=== PATIENT | male | born 1965 | race Caucasian/White ===

== ENCOUNTER 2020-10-23 14:15 | Emergency (ER) | payer OTHER, SELFPAY ==
--- NOTE | ~2020-10-23 | CT_ITS ---
EXAMINATION: CT ABDOMEN AND PELVIS WITHOUT CONTRAST CLINICAL INFORMATION: Left flank pain COMPARISON: None TECHNIQUE: Multidetector volumetric imaging was performed from the superior aspect of the liver through the pubic symphysis. Sagittal and coronal reformatted images were obtained on the technologist's workstation. This CT examination was performed using dose optimization techniques as appropriate, variously including the following: *Automated exposure control *Adjustment of mA and/or kV according to patient size (this includes techniques or standardized protocols for targeted exams where dose is matched to indication/reason for exam; i.e. extremities or head) *Use of iterative reconstruction technique DLP: 962 mGy-cm FINDINGS: LUNG BASES: There is bronchiectasis seen at the lung bases. There is a 1 cm right middle lobe pulmonary nodule. There is a small 3 mm question calcified right lower lobe pulmonary nodule. LIVER, GALLBLADDER, AND BILIARY TREE: The liver is slightly enlarged and low in attenuation suggestive of fatty infiltration. No focal hepatic lesion or biliary ductal dilatation is present. The gallbladder is upper normal in size. No gallstones are seen. PANCREAS: Unremarkable. SPLEEN: The spleen is slightly enlarged measuring 14 cm. ADRENAL GLANDS: Unremarkable. KIDNEYS AND URETERS: There is a 1 cm stone in the left renal pelvis. There is a 2 mm stone in the lower pole of the left kidney. There may be a small cyst exophytic to the lower pole of the left kidney. No right renal stone is seen. No hydronephrosis or ureteral dilatation. BLADDER: Not optimally distended. GASTROINTESTINAL TRACT: There is an umbilical hernia containing small bowel. There is stool throughout the colon suggestive of constipation. Small and large bowel is otherwise unremarkable. ABDOMINAL WALL: Umbilical hernia containing small bowel. No evidence of obstruction. LYMPH NODES: Normal. VASCULAR: Unremarkable. PELVIC VISCERA: Unremarkable. OSSEOUS STRUCTURES: Unremarkable. CT/CT abdomen pelvis wo con IMPRESSION: 1 cm central left renal pelvis stone. Small 2 mm lower pole left renal stone. No hydronephrosis. Small umbilical hernia containing small bowel. No evidence of obstruction. Hepatosplenomegaly and fatty infiltration of the liver.
[2020-10-23 14:31] VITALS: BP 197/97; BP 200/100; PULSE 77; PULSE 88; RESP 20; TEMP 36.8; O2SAT 96; O2SAT 97; BMI 47.9
--- NOTE | 2020-10-23 14:49 | ED_ITS ---
HPI - General Adult General Chief complaint: General Medical Stated complaint: flank pain Time Seen by Provider: 10/23/20 14:37 Source: patient and EMS Mode of arrival: EMS Limitations: no limitations History of Present Illness MD complaint: L flank pain Onset (ago): week(s) (3) Location: abdomen (L flank) Severity: moderate Quality: aching and dull Pain Consistency: constant Relieving factors: none Exacerbating factors: none Associated symptoms: denies other symptoms Treatments prior to arrival: none Related Data Home Medications Medication Instructions Recorded Confirmed methadone 10 mg/mL oral concentrate 2.5 mg PO Q6H 02/24/20 06/23/20 Previous Rx's Medication Instructions Recorded ethyl alcohol 62 % topical gel 1 applic TOPICAL TID #59 ml 12/29/19 (Hand [employer]ent Acquisition Director) latex gloves (Latex Gloves, Large) #24 ea 12/29/19 albuterol sulfate 90 mcg/actuation 2 puff INHALATION Q4-6H PRN 30 02/24/20 aerosol inhaler Days #18 g montelukast 10 mg tablet 10 mg PO DAILY 90 Days #90 tab 02/24/20 sennosides 8.6 mg tablet 17.2 mg PO BEDTIME PRN 90 Days 02/24/20 #180 tab umeclidinium 62.5 mcg/actuation 1 inh PO DAILY 30 Days #30 ea 02/24/20 blister powder for inhalation loratadine 10 mg tablet 10 mg PO BID #180 tab 06/02/20 albuterol sulfate 90 mcg/actuation 2 inh INHALATION Q6H PRN 30 Days 06/07/20 breath activated powder inhaler #1 ea (ProAir RespiClick) ibuprofen 800 mg tablet 800 mg PO BID PRN 10 Days #20 tab 10/20/20 Allergies Allergy/AdvReac Type Severity Reaction Status Date / Time codeine [CODEINE] Allergy Intermediate RASH Verified 06/23/20 09:56 Review of Systems Review of Systems: Constitutional : No Weight loss, No Fever, No Chills ENT/Mouth : No sore throat, No Rhinorrhea Eyes: No Swelling, No Redness Cardiovascular : No Chest Pain, No SOB, NoEdema Respiratory : No Cough, No Sputum, No Wheezing Gastrointestinal : no Nausea, no Vomiting, no Diarrhea, positive abdominal Pain, No Hematochezia, No Melena Genitourinary : No Dysuria, No Urinary Frequency, No Hematuria, No Urgency Musculoskeletal : No joint pain, No Myalgias, No Joint Swelling Skin : No Skin Lesions, No rash Neuro : No Weakness, No Numbness, No Dizziness, No Headache Psych : No Anxiety/Panic, No Depression Heme/Lymph: No Bruising, No Lymphadenopathy Endocrine : No Polyuria, No Polydipsia All other systems reviewed and are negative. [facility] Past Medical History Attestation statement: The following information was validated with the patient. Medical History Back pain Constipation due to opioid therapy COPD (chronic obstructive pulmonary disease) Methadone use Toenail deformity UTI symptoms Surgical History History of appendectomy History of extraction of renal calculus Family History Family History Father Cerebral hemorrhage Mother Breast cancer Social History Social History Alcohol intake: never Cigarettes Per Day: 2 Advance Directives: No Physical Exam Vital Signs: Vital Signs: Last Vital Signs Temp 98.2 F 10/23/20 14:31 Pulse 77 10/23/20 14:31 Resp 20 10/23/20 14:31 BP 197/97 H 10/23/20 14:31 Pulse Ox 97 10/23/20 14:31 Oxygen Flow Rate 4 10/23/20 14:31 Body Mass Index 47.9 Appearance: Alert. Oriented X3. No acute distress. Eyes: Pupils equal, round and reactive to light. ENT: Pharynx normal. Neck: Normal inspection. Neck supple. CVS: Normal heart rate and rhythm. Pulses normal. Respiratory: No respiratory distress. Breath sounds mild anterior exp wheezes Abdomen: Soft and mild LLQ pain no rebound guarding Skin: Skin warm and dry. Normal skin color. Normal skin turgor. Extremities: No lower extremity edema. No calf ttp Neuro: Oriented X 3. No motor deficit. No sensory deficit. Course Course Course Narrative: signed out to Dr. Puente pending urine and CT scan Medical Decision Making MDM Narrative Medical decision making narrative: 55 yo male with hx of COPD scant wheezes he is looking for a new rescue inhaler will order. At this time has atraumatic 3 weeks LLQ pain and L flank pain hx of remote renal colic. At this time labs, UA, CT scan for renal colic, diverticulitis ordered, dispo per results and findings. Lab Data Result diagrams: 10/23/20 14:56 10/23/20 14:56 Labs: Lab Results 10/23/20 10/23/20 10/23/20 Range/Units 14:44 14:56 14:56 WBC 9.3 (4.8-10.8) X10*3/uL RBC 3.68 L (4.60-5.80) X10*6/uL Hgb 11.2 L (14.0-18.0) g/dl Hct 34.6 L (42-52) % MCV 94.0 (80-98) fL MCH 30.4 (27.0-33.0) pg MCHC 32.4 (31.0-36.0) g/dl RDW 13.4 (11.0-16.0) % Plt Count 195 (160-400) X10*3/uL MPV 9.4 (9.4-12.4) fL Immature Gran % (Auto) 0.5 H (0.0-0.4) % Neut % (Auto) 72.9 (45-73) % Lymph % (Auto) 16.8 L (20-40) % [place] % (Auto) 6.8 (2-11) % Eos % (Auto) 2.7 (0-4) % Baso % (Auto) 0.3 (0-2) % Lymph # (Auto) 1.6 (1.2-4.9) X10*3/uL [place] # (Auto) 0.6 (0.1-1.2) X10*3/uL Eos # (Auto) 0.3 (0.0-0.4) X10*3/uL Baso # (Auto) 0.0 (0.0-0.2) X10*3/uL Abs Immat Gran (auto) 0.05 H (0.00-0.03) X10*3/uL Absolute Neuts (auto) 6.8 (2.0-8.3) X10*3/uL Absolute Nucleated RBC 0.000 (0.0-0.012) X10*3/uL Nucleated RBC % (auto) 0.0 (0.0-0.2) /100WBC Sodium 141 (135-145) mmol/L Potassium 4.3 (3.3-5.1) mmol/L Chloride 92 L (96-108) mmol/L Carbon Dioxide 39 H (22-29) mmol/L Anion Gap 14 (12-20) BUN 12 (9-16) mg/dL Creatinine 0.76 (0.5-1.4) mg/dL Estim Creat Clear Calc 154.3 Estimated GFR > 60 Random Glucose 93 (60-115) mg/dL Calcium 9.6 (8.4-10.2) mg/dL Magnesium 2.1 (1.6-2.6) mg/dL Total Bilirubin 0.4 (0.0-1.0) mg/dL Direct Bilirubin 0.2 (0.0-0.5) mg/dL AST 31 (5-37) U/L ALT 58 H (0-40) U/L Alkaline Phosphatase 56 (39-117) U/L Total Protein 7.0 (6.5-8.0) g/dL Albumin 4.4 (3.5-5.0) g/dL Urine Color YELLOW Urine Appearance CLEAR Urine pH 6.5 (5.0-8.0) Ur Specific [place] 1.015 (1.005-1.025) Urine Protein NEG (NEG-TRACE) MG/DL Urine Glucose (UA) NEG (NEG) MG/DL Urine Ketones NEG (NEG) MG/DL Urine Blood 2+ H (NEG) Urine Nitrite NEG (NEG) Ur Leukocyte Esterase TRACE H (NEG) Urine RBC 15-29 H (0) /HPF Urine WBC 1-4 (0-4) /HPF Ur Squamous Epith Cells 1+ /LPF Urine Bacteria NONE /LPF Discharge Plan Discharge Clinical Impression: Left flank pain Prescriptions: No Action (DME) latex gloves [Latex Gloves, Large] Misc See Rx Instructions .ROUTE .MEDSUPPLY Qty: 24 RF: 0 Hand Talent Acquisition Director 62 % gel 1 applic topical TID Qty: 59 RF: 1 loratadine 10 mg tablet 10 mg PO BID Qty: 180 RF: 1 ProAir RespiClick 90 mcg/actuation aerosol powdr breath activated 2 inh inhalation Q6H PRN (Reason: shortness of breath or wheezing) 30 Days Qty: 1 RF: 6 ibuprofen 800 mg tablet 800 mg PO BID PRN (Reason: pain) 10 Days Qty: 20 RF: 0 methadone 10 mg/mL concentrate 2.5 mg PO Q6H RF: 0 albuterol sulfate 90 mcg/actuation HFA aerosol inhaler 2 puff inhalation Q4-6H PRN (Reason: bronchospasm) 30 Days Qty: 18 RF: 11 montelukast 10 mg tablet 10 mg PO DAILY 90 Days Qty: 90 RF: 3 umeclidinium 62.5 mcg/actuation blister with device 1 inh PO DAILY 30 Days Qty: 30 RF: 11 sennosides 8.6 mg tablet 17.2 mg PO BEDTIME PRN (Reason: constipation) 90 Days Qty: 180 RF: 3
[2020-10-23 14:50] LABS: Glucose Urine UA NEG (NEG); Leukocyte Esterase Urine TRACE (NEG); Nitrite Urine NEG (NEG); PH 6.5 (5.0-8.0); Specific Gravity - Urine 1.015 (1.005-1.025); Urine Blood 2+ (NEG); Urine Ketones NEG (NEG); Urine Protein NEG (NEG-TRACE)
[2020-10-23 14:51] LABS: Appearance Urine CLEAR; Color Urine YELLOW
[2020-10-23 15:07] LABS: Squamous Epithelial Cell Urine 1+ /LPF
[2020-10-23 15:09] LABS: MANUAL DIFF FLAG NO
[2020-10-23 15:10] LABS: Basophils Percent Auto 0.3 % (0-2); Eosinophils Absolute Auto 0.3 X10*3/uL (0.0-0.4); Eosinophils Percent Auto 2.7 % (0-4); Hematocrit 34.6 % (42-52); Hemoglobin 11.2 g/dl (14.0-18.0); Imm Gran Abs Auto 0.05 X10*3/uL (0.00-0.03); Imm Gran Pct Auto 0.5 % (0.0-0.4); Lymphocytes Absolute Auto 1.6 X10*3/uL (1.2-4.9); Lymphocytes Percent Auto 16.8 % (20-40); Mean Corpuscular HGB Conc 32.4 g/dl (31.0-36.0); Mean Corpuscular Hemoglobin 30.4 pg (27.0-33.0); Mean Platelet Volume 9.4 fL (9.4-12.4); Monocytes Absolute Auto 0.6 X10*3/uL (0.1-1.2); Monocytes Percent Auto 6.8 % (2-11); Neutrophils Absolute Auto 6.8 X10*3/uL (2.0-8.3); Neutrophils Percent Auto 72.9 % (45-73); Platelet Count 195 X10*3/uL (160-400); Red Blood Count 3.68 X10*6/uL (4.60-5.80); Red Cell Distribution Width 13.4 % (11.0-16.0); White Blood Count 9.3 X10*3/uL (4.8-10.8)
[2020-10-23 15:29] LABS: Alanine Aminotransferase 58 U/L (0-40); Albumin Level 4.4 g/dL (3.5-5.0); Alkaline Phosphatase 56 U/L (39-117); Aspartate Amino Transferase 31 U/L (5-37); Bilirubin Direct 0.2 mg/dL (0.0-0.5); Bilirubin Total 0.4 mg/dL (0.0-1.0); Blood Urea Nitrogen 12 mg/dL (9-16); Calcium 9.6 mg/dL (8.4-10.2); Creatinine Clr Calc Pharmacy 154.3; Estimated Glomerular Filt Rate > 60; Glucose Random 93 mg/dL (60-115); Magnesium 2.1 mg/dL (1.6-2.6)
[2020-10-23 15:39] LABS: Anion Gap 14 (12-20)
[2020-10-23] MEDS: Morphine Sulfate Immed Release 15 MG TABLET PO (15:42)
[2020-10-23] MEDS: Albuterol Sulfate 90 MCG 8 GM INHALER 2 PUFF INHALE (15:42)
[2020-10-23 15:43] LABS: Carbon Dioxide 39 mmol/L (22-29); Chloride 92 mmol/L (96-108); Potassium 4.3 mmol/L (3.3-5.1); Sodium 141 mmol/L (135-145)
[2020-10-23] MEDS: HYDROmorphone HCl 2 MG/ML VIAL IM (17:30)
[2020-10-23] MEDS: oxyCODONE HCl Immed Release 5 MG TABLET 10 MG PO (18:13)
== END 2020-10-23 18:26 | disposition home or self-care (01) ==
PROVIDERS: Emergency Provider Emergency Medicine; PCP Internal Medicine
DX: R10.9 Unspecified abdominal pain (principal); J44.9 Chronic obstructive pulmonary disease, unspecified; F17.210 Nicotine dependence, cigarettes, uncomplicated; Z71.6 Tobacco abuse counseling; Z79.899 Other long term (current) drug therapy
CPT/HCPCS: 36415; 74176; 80048; 80076; 81001; 83735; 85025; 96372; 99284; J1170

== ENCOUNTER 2020-10-25 11:04 | Emergency (ER) | payer OTHER, SELFPAY ==
[2020-10-25 11:13] VITALS: BP 142/90; PULSE 82; O2SAT 97
[2020-10-25 11:59] VITALS: BP 193/84; PULSE 79; RESP 19; TEMP 36.6; O2SAT 99; BMI 48.0
[2020-10-25 12:28] LABS: MANUAL DIFF FLAG NO
[2020-10-25 12:30] LABS: Basophils Percent Auto 0.2 % (0-2); Eosinophils Absolute Auto 0.2 X10*3/uL (0.0-0.4); Eosinophils Percent Auto 2.6 % (0-4); Hematocrit 36.6 % (42-52); Hemoglobin 11.5 g/dl (14.0-18.0); Imm Gran Abs Auto 0.03 X10*3/uL (0.00-0.03); Imm Gran Pct Auto 0.3 % (0.0-0.4); Lymphocytes Absolute Auto 1.4 X10*3/uL (1.2-4.9); Lymphocytes Percent Auto 15.2 % (20-40); Mean Corpuscular HGB Conc 31.4 g/dl (31.0-36.0); Mean Corpuscular Hemoglobin 29.7 pg (27.0-33.0); Mean Corpuscular Volume 94.6 fL (80-98); Mean Platelet Volume 9.5 fL (9.4-12.4); Monocytes Absolute Auto 0.5 X10*3/uL (0.1-1.2); Monocytes Percent Auto 5.7 % (2-11); Platelet Count 201 X10*3/uL (160-400); Red Blood Count 3.87 X10*6/uL (4.60-5.80); Red Cell Distribution Width 13.6 % (11.0-16.0); White Blood Count 9.3 X10*3/uL (4.8-10.8)
[2020-10-25 12:52] LABS: Anion Gap 10 (12-20); Blood Urea Nitrogen 11 mg/dL (9-16); Calcium 9.7 mg/dL (8.4-10.2); Carbon Dioxide 42 mmol/L (22-29); Chloride 92 mmol/L (96-108); Creatinine Clr Calc Pharmacy 154.6; Estimated Glomerular Filt Rate > 60; Glucose Random 88 mg/dL (60-115); Potassium 4.3 mmol/L (3.3-5.1); Sodium 140 mmol/L (135-145)
--- NOTE | 2020-10-25 15:53 | ED_ITS ---
HPI - Male Genitourinary General Chief complaint: Urogenital-Female Stated complaint: L FLANK PAIN, ? KIDNEY STONE Time Seen by Provider: 10/25/20 15:42 Source: patient Mode of arrival: ambulatory Limitations: no limitations History of Present Illness HPI Narrative: 55-year-old male with a past medical history of COPD on 4 L of oxygen chronically, former substance abuse on methadone daily, history of renal colic remotely requiring stenting here with complaints of continued left flank pain. Patient was seen here on Saturday for reports of flank pain. He was diagnosed with a 10 mm stone and the left with no hydronephrosis or obstruction. He received some pain medication and was discharged home with oxycodone 5 mg p.r.n.. Patient tells me that he did not receive any paperwork with urology follow-up. Today continued pain unrelieved with home oxycodone prompting ER visit. No vomiting or fever or urinary symptoms Patient tells me he also ran out of his albuterol inhaler and is requesting a refill. Related Data Home Medications Medication Instructions Recorded Confirmed methadone 10 mg/mL oral concentrate 2.5 mg PO Q6H 02/24/20 06/23/20 Previous Rx's Medication Instructions Recorded ethyl alcohol 62 % topical gel 1 applic TOPICAL TID #59 ml 12/29/19 (Hand Supervisor Fur Floor Worker) latex gloves (Latex Gloves, Large) #24 ea 12/29/19 albuterol sulfate 90 mcg/actuation 2 puff INHALATION Q4-6H PRN 30 02/24/20 aerosol inhaler Days #18 g montelukast 10 mg tablet 10 mg PO DAILY 90 Days #90 tab 02/24/20 sennosides 8.6 mg tablet 17.2 mg PO BEDTIME PRN 90 Days 02/24/20 #180 tab umeclidinium 62.5 mcg/actuation 1 inh PO DAILY 30 Days #30 ea 02/24/20 blister powder for inhalation loratadine 10 mg tablet 10 mg PO BID #180 tab 06/02/20 albuterol sulfate 90 mcg/actuation 2 inh INHALATION Q6H PRN 30 Days 06/07/20 breath activated powder inhaler #1 ea (ProAir RespiClick) ibuprofen 800 mg tablet 800 mg PO BID PRN 10 Days #20 tab 10/20/20 oxycodone 5 mg tablet 5 mg PO Q6H PRN #20 tab 10/23/20 oxycodone 5 mg tablet 5 mg PO Q6H PRN #15 tab 10/25/20 Allergies Allergy/AdvReac Type Severity Reaction Status Date / Time codeine [CODEINE] Allergy Intermediate RASH Verified 06/23/20 09:56 Review of Systems Review of Systems: Yes all other systems are reviewed and are negative Constitutional: Constitutional: Reports no additional constitutional complaints, Denies body ache(s), Denies chills, Denies fever(s), Denies he adache(s) and Denies weakness Eyes: Eyes: Reports no additional eye complaints and Denies change in vision ENT: Reports system reviewed and no additional complaints, except as documented, Denies dizziness, Denies headache(s), Denies nasal congestion, Denies nasal discharge and Denies neck pain Cardiovascular: Cardiovascular: Reports no additional cardiovascular complaints, Denies chest pain, Denies leg edema and Reports dyspnea (chronic ) Respiratory: Respiratory: Reports no additional respiratory complaints, Denies cough and Reports dyspnea (chronic ) Gastrointestinal: Gastrointestinal: Reports no additional gastrointestinal complaints, Denies abdominal pain, Denies diarrhea, Denies nausea and Denies vomiting Genitourinary: Genitourinary: Denies urinary incontinence Musculoskeletal: Musculoskeletal: Reports no additional musculoskeletal complaints, Reports back pain, Denies arthralgias, Denies joint swelling, Denies neck pain, Denies numbness and Denies tingling Integumentary/Breasts: Skin/Breast: Reports system reviewed and no additional complaints, except as docu and Denies rash Neurologic: Reports system reviewed and no additional complaints, except as documented, Denies Abnormal speech present, Denies dizziness, Denies headache(s), Denies numbness, Denies tingling and Denies weakness [facility] Past Medical History Attestation statement: The following information was validated with the patient. Source: old records reviewed and nursing notes reviewed Medical History Back pain Constipation due to opioid therapy COPD (chronic obstructive pulmonary disease) Methadone use Toenail deformity UTI symptoms Surgical History History of appendectomy History of extraction of renal calculus Family History Family History Father Cerebral hemorrhage Mother Breast cancer Social History Social History Alcohol intake: never Patient Tobacco Use Status: Current everyday Tobacco user Cigarettes Per Day: 2 Use of substances other than those prescribed or required for medical reasons: No Advance Directives: No Advance Directives Information Provided: No Physical Exam Vital Signs: Vital Signs: Last Vital Signs Temp 98 F 10/25/20 11:59 Pulse 92 10/25/20 17:48 Resp 20 10/25/20 17:48 BP 211/113 H 10/25/20 17:48 Pulse Ox 99 10/25/20 17:48 Body Mass Index 48.0 Const: General: cooperative, healthy appearing, comfortable and no acute distress Orientation/consciousness: patient oriented x3 Limitations: no limitations HENMT: Head: Yes normal to inspection Ears: hearing grossly normal bilaterally General nose exam: Normal external nose present Face and sinus: Yes normal facial exam Mouth: Normal oral and palatal mucosa present Throat: Yes posterior oropharynx normal Eyes: General: appearance normal, both eyes and all related structures Pupils: Equal, round and reactive pupils present Neck: Neck: Yes normal visual inspection Chest: Chest palpation & inspection: normal inspection of the chest Resp: Other: Mild exp wheezing Effort & Inspection: normal respiratory effort Cardio: Rate: regular rate Rhythm: regular rhythm Peripheral pulses: Peripheral pulses 2+ throughout GI: Inspection: Yes normal to inspection Palpation (GI): Soft to palpation and nontender Auscultation: normal bowel sounds : General: Yes CVA tenderness (moderate left ) Back/Spine/Pelvis: Back: CVA tenderness (moderate left ) Thoracic/Lumbar Spine: thoracic and lumbar spine normal to inspection Skin: General skin exam: no rashes or lesions noted Neuro: General: patient oriented x3, no focal motor deficits and normal sensation to monofilament Cranial nerves: Yes Equal, round and reactive pupils present Cognition (Neuro): normal cognition Speech: No Abnormal speech present Gait exam (Neuro): Normal gait present Motor exam (neuro): 5/5 motor strength present throughout Extrem: General: Yes normal to inspection, Yes no pedal edema and Yes no calf tenderness Course Course Course Narrative: 55 yo male here with continued left flank pain with known 1cm non obstructing renal stone diagnosed 10/23 despite taking 5mg oxycodone PRN. Somehow patient got lost to follow-up and did not follow-up with urology. Labs reviewed from triage which show mild hypercarbia. Patient has h/o COPD on chronic 4 LNC with h/o CO2 retention. Patient A&Ox4. Mildy worsened from previous. Will check UA, provide analgesia. D/w with urology if no improvement. 1900-pain is much improved after 1 dose of Toradol. Labs and UA are unremarkable with exception of above. Spoke to Dr. Zayas. Patient can follow- up in the office with him tomorrow. Will give brief course of oxycodone and Tylenol and Motrin in addition p.r.n.. Patient is agreeable to this plan. Reviewed worrisome signs and symptoms of when to return to the emergency department. Comfortable discharge home. MDM - Male Genitourinary MDM Narrative Medical decision making narrative: renal colic Differential Diagnosis Differential diagnosis: Likely urinary tract infection Medical Records Attestation: I reviewed the patient's medical records. Lab Data Attestation: I reviewed the patient's lab results. Result diagrams: 10/25/20 12:23 10/25/20 12:23 Labs: Lab Results 10/25/20 10/25/20 10/25/20 Range/Units 12:23 12:23 16:00 WBC 9.3 (4.8-10.8) X10*3/uL RBC 3.87 L (4.60-5.80) X10*6/uL Hgb 11.5 L (14.0-18.0) g/dl Hct 36.6 L (42-52) % MCV 94.6 (80-98) fL MCH 29.7 (27.0-33.0) pg MCHC 31.4 (31.0-36.0) g/dl RDW 13.6 (11.0-16.0) % Plt Count 201 (160-400) X10*3/uL MPV 9.5 (9.4-12.4) fL Immature Gran % (Auto) 0.3 (0.0-0.4) % Neut % (Auto) 76.0 H (45-73) % Lymph % (Auto) 15.2 L (20-40) % [place] % (Auto) 5.7 (2-11) % Eos % (Auto) 2.6 (0-4) % Baso % (Auto) 0.2 (0-2) % Lymph # (Auto) 1.4 (1.2-4.9) X10*3/uL [place] # (Auto) 0.5 (0.1-1.2) X10*3/uL Eos # (Auto) 0.2 (0.0-0.4) X10*3/uL Baso # (Auto) 0.0 (0.0-0.2) X10*3/uL Abs Immat Gran (auto) 0.03 (0.00-0.03) X10*3/uL Absolute Neuts (auto) 7.0 (2.0-8.3) X10*3/uL Absolute Nucleated RBC 0.000 (0.0-0.012) X10*3/uL Nucleated RBC % (auto) 0.0 (0.0-0.2) /100WBC Sodium 140 (135-145) mmol/L Potassium 4.3 (3.3-5.1) mmol/L Chloride 92 L (96-108) mmol/L Carbon Dioxide 42 H* (22-29) mmol/L Anion Gap 10 L (12-20) BUN 11 (9-16) mg/dL Creatinine 0.76 (0.5-1.4) mg/dL Estim Creat Clear Calc 154.6 Estimated GFR > 60 Random Glucose 88 (60-115) mg/dL Calcium 9.7 (8.4-10.2) mg/dL Urine Color YELLOW Urine Appearance HAZY Urine pH 7.0 (5.0-8.0) Ur Specific [place] 1.015 (1.005-1.025) Urine Protein NEG (NEG-TRACE) MG/DL Urine Glucose (UA) NEG (NEG) MG/DL Urine Ketones NEG (NEG) MG/DL Urine Blood 1+ H (NEG) Urine Nitrite NEG (NEG) Ur Leukocyte Esterase NEG (NEG) Urine RBC 10-14 H (0) /HPF Urine WBC 0 (0-4) /HPF Ur Squamous Epith Cells 1+ /LPF Urine Bacteria NONE /LPF Discharge Plan Discharge Clinical Impression: Renal colic on left side Patient Disposition: Home, Self-Care Instructions: Renal Colic (ED) Additional Instructions: Continue the motrin and tylenol Dr Zayas's nurse will call you tomorrow. If you not hear from them by 12pm please call. Prescriptions: New oxycodone 5 mg tablet 5 mg PO Q6H PRN (Reason: pain) Qty: 15 RF: 0 No Action (DME) latex gloves [Latex Gloves, Large] Misc See Rx Instructions .ROUTE .MEDSUPPLY Qty: 24 RF: 0 Hand Supervisor Fur Floor Worker 62 % gel 1 applic topical TID Qty: 59 RF: 1 loratadine 10 mg tablet 10 mg PO BID Qty: 180 RF: 1 ProAir RespiClick 90 mcg/actuation aerosol powdr breath activated 2 inh inhalation Q6H PRN (Reason: shortness of breath or wheezing) 30 Days Qty: 1 RF: 6 ibuprofen 800 mg tablet 800 mg PO BID PRN (Reason: pain) 10 Days Qty: 20 RF: 0 oxycodone 5 mg tablet 5 mg PO Q6H PRN (Reason: Moderate Pain (Scale Score 5-6)) Qty: 20 RF: 0 methadone 10 mg/mL concentrate 2.5 mg PO Q6H RF: 0 albuterol sulfate 90 mcg/actuation HFA aerosol inhaler 2 puff inhalation Q4-6H PRN (Reason: bronchospasm) 30 Days Qty: 18 RF: 11 montelukast 10 mg tablet 10 mg PO DAILY 90 Days Qty: 90 RF: 3 umeclidinium 62.5 mcg/actuation blister with device 1 inh PO DAILY 30 Days Qty: 30 RF: 11 sennosides 8.6 mg tablet 17.2 mg PO BEDTIME PRN (Reason: constipation) 90 Days Qty: 180 RF: 3 Referrals: Marty Zayas MD [Physician] - 2 days
[2020-10-25] MEDS: Albuterol Sulfate 90 MCG 8 GM INHALER 2 PUFF INHALE (16:01)
[2020-10-25 16:23] LABS: Appearance Urine HAZY; Color Urine YELLOW; Glucose Urine UA NEG (NEG); Leukocyte Esterase Urine NEG (NEG); Nitrite Urine NEG (NEG); Specific Gravity - Urine 1.015 (1.005-1.025); UACC Culture Trigger NO; Urine Blood 1+ (NEG); Urine Ketones NEG (NEG); Urine Protein NEG (NEG-TRACE)
[2020-10-25 16:35] LABS: Squamous Epithelial Cell Urine 1+ /LPF; WBC Urine 0 /HPF (0-4)
[2020-10-25] MEDS: Tamsulosin HCL 0.4 MG CAPSULE PO (17:20)
[2020-10-25] MEDS: Ketorolac Tromethamine 60 MG/2 ML VIAL IM (17:20)
[2020-10-25 17:48] VITALS: BP 211/113; PULSE 92; RESP 20; O2SAT 99
--- NOTE | 2020-10-25 18:35 | PC.NURSE ---
pt reports feeling better, pain at 5/10
[2020-10-25] MEDS: oxyCODONE HCl Immed Release 5 MG TABLET 10 MG PO (20:23)
== END 2020-10-25 20:34 | disposition home or self-care (01) ==
PROVIDERS: Emergency Medicine; Emergency Provider Emergency Medicine; PCP Internal Medicine
DX: N23 Unspecified renal colic (principal); F11.20 Opioid dependence, uncomplicated
CPT/HCPCS: 36415; 80048; 81001; 85025; 94640; 96372; 99284; J1885

== ENCOUNTER → 2020-10-27 09:14 | Outpatient (BNVA) | payer OTHER, SELFPAY | PROVIDERS: PCP Internal Medicine; Visit Provider Urology ==

== ENCOUNTER 2020-10-31 11:40 | Day surgery (SDC) | payer OTHER, SELFPAY ==
[2020-10-31] VITALS (7 sets, daily range): BP systolic 148–195; BP diastolic 78–94; PULSE 80–89; RESP 16–18; TEMP 36.8–37; O2SAT 88–99; BMI 46.6
--- NOTE | ~2020-10-31 | FL_ITS ---
EXAMINATION: XR FLUOROSCOPY WITH IMAGES CLINICAL INFORMATION: Left kidney stone. COMPARISON: None. TECHNIQUE: Fluoroscopy performed by Dr. Marquez Ferguson. Fluoroscopy time: 37.3 seconds DAP: 30.69 mGycm2 Images: 2 FINDINGS: There are 2 images obtained in the OR which reveal a left ureteral stent with its proximal end in the kidney pelvis with minimal contrast opacifying the pelvis and the distal end of the stent in the bladder. There is a cystoscope in place. FL/FL guidance in OR IMPRESSION: Fluoroscopy was provided to Marquez Ferguson during urography procedure.
[2020-10-31] MEDS: Albuterol Sulfate (0.083%) 2.5 MG/3 ML VIAL.NEB INHALE (14:02)
[2020-10-31] MEDS: Lactated Ringers 500 ML 20 ML IVCONT (14:30)
--- NOTE | 2020-10-31 14:36 | PC.NURSE ---
Lung sounds auscultated during intake, coarse lung sounds with wheezes throughout. Patient congested and coughing up small amounts of sputum. Patient has Hx of COPD and is O2 dependent on 4L via NC at home. SaO2 93% on 4L which patient states is very good for him. Anesthesia Dr. Orr notified. Nebulizer ordered and respiratory called. Respiratory at bedside and treatment administered. Patient tolerated well. Lung sounds after treatment remain coarse with less wheezing throughout. Sputum production the same.
[2020-10-31] MEDS: levoFLOXacin 500 MG TABLET PO (15:06)
--- NOTE | 2020-10-31 15:16 | HO.ANESPROP2 ---
[facility] Active Problems Active Problems: All Active Problems (Updated 10/27/20 @ 09:54 by Marty Zayas MD) Nephrolithiasis (Acute) Methadone use (Acute) Toenail deformity (Acute) Constipation due to opioid therapy (Acute) COPD (chronic obstructive pulmonary disease) (Acute) UTI symptoms (Acute) Back pain (Acute) Past Medical History Medical History Back pain Constipation due to opioid therapy COPD (chronic obstructive pulmonary disease) Methadone use Toenail deformity UTI symptoms Family History Family History Father Cerebral hemorrhage Mother Breast cancer Family history of problems with anesthesia: No Surgical History Surgical History History of appendectomy History of extraction of renal calculus History of Problems with Anesthesia: No Social History Social History Alcohol intake: never Patient Tobacco Use Status: Current everyday Tobacco user Tobacco use type: Cigarette Cigarettes Per Day: 3 Years Smoked: 35 Smoked in Last 30 Days: Yes Use of substances other than those prescribed or required for medical reasons: Yes Substance Use Frequency: Chronic Longstanding Are you DNR?: No Advance Directives: No Advance Directives Information Provided: No Meds Allergies Allergy/AdvReac Type Severity Reaction Status Date / Time codeine [CODEINE] Allergy Intermediate RASH Verified 10/31/20 13:16 Active Medications: Current Medications Generic Name Dose Route Start Last Admin Trade Name Freq PRN Reason Stop Dose Admin Fentanyl 50 mcg 10/31/20 15:15 Fentanyl Citrate/Pf 100 Mcg/2 Ml Vial IVPUSH Q5M PRN Pain, Severe (Pain Scale 7-10) Protocol Lactated Ringer's 500 mls @ 20 mls/hr 10/31/20 15:15 Lr IVCONT .Q24H LUIS FELIPE Acetaminophen 1,000 mg in 100 mls @ 400 mls/hr 10/31/20 15:15 Ofirmev IV 10/31/20 15:29 ONCE ONE Ketorolac Tromethamine 15 mg 10/31/20 15:15 Ketorolac Tromethamine 15 Mg/Ml Vial IVPUSH ONCE PRN Pain, Moderate (Pain Scale 4-6 Ondansetron HCl 4 mg 10/31/20 15:15 Ondansetron Hcl 4 Mg/2 Ml Vial IVPUSH ONCE PRN Nausea and Vomiting Oxycodone HCl 5 mg 10/31/20 15:15 Oxycodone Hcl Immed Release 5 Mg Tablet PO ONCE PRN Pain, Severe (Pain Scale 7-10) Home Medications Medication Instructions Recorded Confirmed Last Taken Type methadone 10 mg/mL oral concentrate 135 mg PO DAILY 02/24/20 06/23/20 10/31/20 05:30 History Exam Exam Date and Time: October 31, 2020 151 Height,Weight and Vital Signs: Height 5 ft 9 in Weight 143.335 kg Last Vital Signs Temp 98.6 F 10/31/20 13:28 Pulse 82 10/31/20 14:04 Resp 16 10/31/20 13:28 BP 148/86 H 10/31/20 13:28 Pulse Ox 93 10/31/20 13:28 Airway Mallampati Class: II TM Dist: >3cm Neck ROM: Full Assessment and Plan Assessment Anesthesia Assessment: Anesthesia Plan Discussed and Chart Reviewed Final Anesthetic Review Family History of Problems with Anesthesia: No History of Problems with Anesthesia: No NPO: Yes ASA Class: III Final Preanesthetic Review: No Changes in Pt Med Stat, Meds/Allgs Chart Reviewed, Consent Obtained/Reviewed and Anes Risks/Benef Reviewed Patient Risk: Intermediate Procedure Risk: Low Assessment/Block/Sedation in SS: Assess/Block/Sedation-SS Anesthetic Plan Anesthetic Plan: GA Disposition: Standard PACU
--- NOTE | 2020-10-31 15:41 | MHC.SHP ---
Pre-Procedural Eval Section A Date of Service: 10/31/20 Section B Chief Complaint: kidney stone Details of Present Illness: Left renal stone Relevant Social History: None Present Medications: see Short Stay Collaborative assessment Medical History: Significant History History of Previous Operations: No relevant previous surgery Allergies: Allergies Allergy/AdvReac Type Severity Reaction Status Date / Time codeine [CODEINE] Allergy Intermediate RASH Verified 10/31/20 13:16 Review of Systems Sugical H&P ROS: Negative: Constitution, Cardiovascular, Respiratory, Neurological, Psychiatric, Hem-Onc, Allergic/Immunologic, Gastrointestinal, Genitourinary, Musculoskeletal, Integumentary, Endocrine and Eyes/Ears/Nose/Throat Exam Surgical H&P Exam: Normal: HEENT, Normal: Heart, Normal: Lungs, Normal: Extremities, Normal: Abdomen, Normal: Skin and Normal: Neurological Plan Diagnosis/Plan: Unchanged (Cystoscopy, retrograde, left ureteroscopy, laser lithotripsy stent placement) I have reviewed the history and physical and performed a pertinent physical examination on my patient. No changes have occurred unless specified.
[2020-10-31] MEDS: oxyCODONE HCl Immed Release 5 MG TABLET PO (17:53)
[2020-10-31] MEDS: Phenazopyridine HCL 100 MG TABLET PO (17:53)
[2020-11-05 00:41] LABS: Stone Source KIDNEY
--- NOTE | 2020-11-16 10:57 | P.OP_ITS ---
Operative Note Operative Note Date of Service: 10/31/20 Narrative: PreOperative Diagnosis: Left renal stone Post Operative Diagnosis: Left renal stone Procedure: - cystoscopy, retrograde - left dilatation of ureteric orifice under fluoroscopy - leftureteroscopy, laser lithotripsy, stone basketing - leftstent placement Surgeon: Dr Marty Zayas Anesthesia: General Indications for procedure: Seen in the emergency room with left-sided flank pain. Imaging performed 1 cm left renal stone. With small associated 2 mm stone. Based on his body habitus he has a BMI of 45 recommendation is for ureteroscopy with laser lithotripsy. ESWL not suitable in this setting. He understands potential risks and benefits. Procedure: After informed consent was verified patient was brought to the operating placed in supine position. Anesthesia was administered per protocol. Patient was placed in modified dorsal lithotomy position and prepped and draped in a sterile fashion. Safety pause time-out and side of surgery confirmed. Antibiotics confirmed. Twenty-two Bengali cystoscope inserted per urethra. No abnormality noted the anterior posterior urethra. Bladder entered and both ureteric orifices seen in normal position. Left ureteric orifice cannulated and retrograde examination performed. Filling defects seen within the left renal pelvis. Sensor guidewire placed. Left ureteric orifice dilated with internal cannula from ureteric access sheath. Flexible ureteral scope placed. Stone encountered in kidney. Using a holmium laser the stone was broken into small pieces. These pieces were removed using a Zero tip ureteric basket. When area had been irrigated free sensor guidewire was placed. Access sheath was removed. Six Bengali by 24 cm double-J stent placed good coil seen within the bladder and in the renal pelvis. Patient tolerated procedure in the operating room and transferred in stable condition to the recovery area. Pathology: Stones Drains: 6 Bengali by 24 cm double-J stent
== END 2020-10-31 18:42 | disposition home or self-care (01) ==
PROVIDERS: PCP Internal Medicine; Visit Provider Urology
PROC: (CPT 52356; principal; 2020-10-31 14:50)
DX: N20.0 Calculus of kidney (principal); Z87.442 Personal history of urinary calculi; J44.9 Chronic obstructive pulmonary disease, unspecified; K59.03 Drug induced constipation; F11.90 Opioid use, unspecified, uncomplicated; E66.01 Morbid (severe) obesity due to excess calories; Z68.42 Body mass index [BMI] 45.0-49.9, adult; Z88.8 Allergy status to other drugs, medicaments and biological substances; F17.210 Nicotine dependence, cigarettes, uncomplicated
CPT/HCPCS: 52356; 52352; 82365; 88300; 94640; C1769; C1894; C2617; J1100; J2250; J2405; J3010; Q9967

== ENCOUNTER → 2020-11-30 12:40 | Outpatient (BNVA) | payer OTHER, SELFPAY | PROVIDERS: PCP Internal Medicine; Visit Provider Urology | DX: N20.0 Calculus of kidney (principal) | CPT/HCPCS: 52310; 99212 ==

== ENCOUNTER 2022-09-27 12:36 | Outpatient (AMB) | payer OTHER, SELFPAY ==
--- NOTE | 2022-09-27 12:39 | MHC.PC.OV ---
Vital Signs 09/27/22 12:40 Height 5 ft 8 in Weight 293 lb 6 oz BMI 44.6 BP 164/90 H Blood Pressure Location Lt brachial Position Sitting Pulse 85 Pulse Source Pulse Oximeter Pulse Oximetry (%) 98 Oxygen Delivery Method Nasal Cannula Intake Visit Reasons: follow up Maintenance Of Way Clerk Required: No Accompanied by: Shauna Allergies codeine [CODEINE] Allergy (Intermediate, Verified 09/27/22 12:57) RASH Medication List - Last Reconciled 09/27/22 by Sejal Adhikari MD ethyl alcohol 62% (Hand [employer] House Manager) 1 appl topical TID facial mask (Face Mask,Earloop-Style) As directed ibuprofen 800 mg PO BID PRN 30 days latex gloves As directed, X-large loratadine 10 mg PO BID methadone 130 mg PO DAILY miscellaneous medical supply CONSERVING TRIAL FOR POC montelukast 10 mg PO DAILY 90 days sennosides 25.8 mg (3 x 8.6 mg) PO BEDTIME PRN 90 days umeclidinium 62.5 mcg/actuation 1 inh PO DAILY 30 days Ventolin HFA 90 mcg/actuation (albuterol sulfate) 3 puffs inhalation Q4H PRN 30 days NS Tobacco use date assessed: 09/27/22 Dental Screening Dental Screen Date: 09/27/22 Did you have a dental visit in the last 12 months?: Yes Did you have a dental problem in the last 6 months where you did not have access to dental care?: No Was dental information given to patient?: Patient has dentist HPI HPI Comments History of Present Illness Details This is a 57-year-old male with COPD, oxygen dependent, morbid obesity, methadone user and constipation that comes today for follow-up on his conditions. He use rescue inhaler over 4 times a month and has a pulmonology appointment for his COPD next week. On constant oxygen with a nasal cannula at 2-3 L with oxygen saturation over 90%. He is morbidly obese with a BMI of 44.6 and has been trying to do diet to lose weight. On methadone clinic for history of substance use. He has constipation secondary to methadone with less than 3 bowel movements per week and has improved with senna as needed. Denies any chest pain. No more shortness of breath than usual. Accompanied by GEOTECHNICAL ENGINEER. [facility] Medical History (Updated 09/27/22 @ 13:16 by Sejal Adhikari MD) Back pain Constipation due to opioid therapy COPD (chronic obstructive pulmonary disease) Methadone use Toenail deformity UTI symptoms Surgical History History of appendectomy History of extraction of renal calculus Family History Father Cerebral hemorrhage Mother Breast cancer Social History Housing: Apartment Alcohol intake: never Patient Tobacco Use Status: Current everyday Tobacco user Tobacco use type: Cigarette Cigarettes Per Day: 3 Years Smoked: 35 e-Cigarette/Vaping Use: Never Used Second Hand Smoke Exposure: No service: No Current occupational status: unemployed Cognitive needs: No Hearing needs: No Vision needs: Yes Questionnaire PHQ-9 Over the last 2 weeks, how often have you been bothered by any of the following problems? 1. Little interest or pleasure in doing things: not at all 2. Feeling down, depressed, or hopeless: not at all 3. Trouble falling or staying asleep, or sleeping too much: not at all 4. Feeling tired or having little energy: not at all 5. Poor appetite or overeating: not at all 6. Feeling bad about yourself - or that you are a failure or have let yourself or your family down: not at all 7. Trouble concentrating on things, such as reading the newspaper or watching television: not at all 8. Moving or speaking so slowly that other people could have noticed. Or the opposite - being so fidgety or restless that you have been moving around a lot more than usual: not at all 9. Thoughts that you would be better off or of hurting yourself in some way: not at all Total score: 0 Depression Screening Interpretation: Negative 41952 - PHQ-9 Billing: Yes Source: Developed by Drs. Cezar Brown, Sarahi Urbano, Junior Montgomery and colleagues, with an educational ashok from [facility]. Thrive Questionnaire Date Thrive assessed: 09/27/22 I am a: Patient What is your living situation today?: I have a steady place to live Within the past 12 months, did the food you bought not last and you didn't have the money to get more?: Never true Within the past 12 months, did you worry whether your food would run out before you got money to buy more?: Never true Do you have trouble paying for medicines?: No Do you have trouble getting transportation to medical appointments?: No Do you have trouble paying your heating and electricity bill?: No Do you have trouble taking care of your child, family member or friend?: No Do you have trouble with day-to-day activities such as bathing, preparing meals, shopping, managing finances, etc.?: No Are you currently unemployed and looking for a job?: No Are you interested in more education?: No Please select the resources that you would like help with: None Currently or been in a relationship where the following occur: no concerns reported AUDIT C Alcohol Use Questionnaire (AUDIT-C) 1. How often do you have a drink containing alcohol?: Never 3. How often do you have six or more drinks on one occasion?: Never Total Score: 0 KAYLEE-7 AMB Questionnaire KAYLEE-7 Date KAYLEE - 7 assessed: 09/27/22 Feeling nervous, anxious, or on edge: 0 = Not at all Not being able to stop or control worryin = Not at all Worrying too much about different things: 0 = Not at all Trouble relaxin = Not at all Being so restless that it is hard to sit still: 0 = Not at all Becoming easily annoyed or irritable: 0 = Not at all Feeling afraid as if something awful might happen: 0 = Not at all Total KAYLEE-7 score (0-4 normal; 5-9 mild; 10-14 moderate; 15-21 severe): 0 Source: Developed by Drs. Cezar Brown, Sarahi Urbano, Junior Montgomery and colleagues, with an educational ashok from [facility]. KAYLEE-7 Assessment Billing KAYLEE-7 Assessment Tool: KAYLEE-7 Assessment 74098 Review of Systems Const All systems reviewed & are unremarkable except as noted in HPI and below Eyes Reports no additional complaints, Denies change in vision and Denies other visual disturbances Card Denies chest pain at rest, Denies chest pain with activity, Denies edema, Denies irregular heart rhythm, Denies claudication, Denies dyspnea, Denies dyspnea on exertion, Denies orthopnea, Denies paroxysmal nocturnal dyspnea and Denies slow heart rate Resp Denies cough, Denies dyspnea and Denies dyspnea on exertion GI Denies abdominal pain, Denies change in bowel habits, Denies excessive flatus, Denies nausea and Denies vomiting Denies urinary hesitancy, Denies urinary incontinence and Denies urinary urgency Musc Denies abnormal gait, Denies atrophy, Denies deformity and Denies limited range of motion Skin/Breast Denies bleeding lesions, Denies changing lesions and Denies rash Neuro Denies abnormal gait and Denies lack of coordination Physical exam (Primary Care) Vital Signs: Last Vital Signs Pulse 85 09/27/22 12:40 BP 164/90 H 09/27/22 12:40 Pulse Ox 98 09/27/22 12:40 Oxygen Delivery Method Nasal Cannula 09/27/22 12:40 BMI result Body Mass Index 44.6 Tobacco/Smoking Status: Tobacco use Status Tobacco use date assessed 09/27/22 09/27/22 12:55 Patient Tobacco Use Status Current everyday Tobacco 09/27/22 12:44 Tobacco use type Cigarette 09/27/22 12:44 e-Cigarette/Vaping Use Never Used 09/27/22 12:44 PHQ-9: PHQ-9 Score PHQ-9: Total score 0 09/27/22 12:55 Depression Screening Interpretation: Negative Thrive Assessment: Date of Thrive Assessment Date Thrive assessed 09/27/22 09/27/22 12:55 Currently or been in a relationship where the following occur: no concerns reported Const Other: nasal cannula in place. Eyes General: appearance normal, both eyes and all related structures Eyelids: Yes eyelids normal Conjunctivae: conjunctivae normal Neck Neck: Yes normal visual inspection and Yes supple Resp Effort & Inspection: normal respiratory effort Auscultation: clear to auscultation bilaterally Cardio Jugular venous distension: no JVD Rate: regular rate Rhythm: regular rhythm Heart sounds: S1 normal heart sound present and S2 normal heart sound present Extrem General: Yes full ROM Assessment and Plan Assessment & Plan (1) COPD (chronic obstructive pulmonary disease): Code(s): J44.9 - Chronic obstructive pulmonary disease, unspecified Qualifiers: COPD type: unspecified COPD Qualified Code(s): J44.9 - Chronic obstructive pulmonary disease, unspecified Plan: Continue Incruse. Use rescue inhaler as needed. Continue oxygen. Follow-up with pulmonology. (2) Methadone use: Code(s): F11.20 - Opioid dependence, uncomplicated Plan: Continue weaning of methadone. (3) Morbid obesity with BMI of 40.0-44.9, adult: Code(s): E66.01 - Morbid (severe) obesity due to excess calories; Z68.41 - Body mass index [BMI] 40.0-44.9, adult Plan: Continue diet and exercise as tolerated. BMI goal is less than 30. (4) Constipation due to opioid therapy: Code(s): K59.03 - Drug induced constipation; T40.2X5A - Adverse effect of other opioids, initial encounter Plan: Continue senna as needed Orders: Orders Comprehensive Met. Panel Today E66.01 - Morbid (severe) obesity due to excess calories, Z68.41 - Body mass index [BMI] 40.0-44.9, adult IRON PROFILE Today D64.9 - Anemia, unspecified Lipid Panel Today E66.01 - Morbid (severe) obesity due to excess calories, E78.5 - Hyperlipidemia, unspecified, Z68.41 - Body mass index [BMI] 40.0-44.9, adult Complete Blood Count Auto Diff Today D64.9 - Anemia, unspecified, E66.01 - Morbid (severe) obesity due to excess calories, Z68.41 - Body mass index [BMI] 40.0-44.9, adult Coding Level of Care Code Est Pt Level 4 (74312) Diagnoses COPD (chronic obstructive pulmonary disease) J44.9 COPD type: unspecified COPD Methadone use F11.20 Morbid obesity with BMI of 40.0-44.9, adult E66.01; Z68.41 Constipation due to opioid therapy K59.03; T40.2X5A Additional Codes KAYLEE-7 Assessment Billing - KAYLEE-7 Assessment Tool: KAYLEE-7 Assessment 20616 ([id number]) Time Spent (min) 24
[2022-09-27 12:40] VITALS: BP 164/90; PULSE 85; O2SAT 98; BMI 44.6
== END 2022-09-27 13:16 | disposition home or self-care (01) ==
PROVIDERS: PCP Internal Medicine; Visit Provider Internal Medicine
DX: J44.9 Chronic obstructive pulmonary disease, unspecified (principal); F11.20 Opioid dependence, uncomplicated; E66.01 Morbid (severe) obesity due to excess calories; Z68.41 Body mass index [BMI] 40.0-44.9, adult; K59.03 Drug induced constipation; T40.2X5A Adverse effect of other opioids, initial encounter
CPT/HCPCS: 99214

== ENCOUNTER 2022-11-23 13:11 | Outpatient (AMB) | payer OTHER, SELFPAY ==
[2022-11-23 13:23] VITALS: PULSE 90; O2SAT 98; BMI 44.5
--- NOTE | 2022-11-23 13:23 | MHC.OFFVIS ---
Intake Vital Signs 11/23/22 13:23 Height 5 ft 8 in Weight 293 lb BMI 44.5 Pulse 90 Pulse Source Pulse Oximeter Pulse Oximetry (%) 98 Oxygen Delivery Method Room Air Comment 4 Liters Oxygen([facility]) Intake Visit Reasons: copd Supervisor Coin Machine Required: No Allergies codeine [CODEINE] Allergy (Intermediate, Verified 11/23/22 13:27) RASH HPI HPI Comments History of Present Illness Details The patient is here for pulmonary evaluation. The patient is a 57-year-old gentleman with known COPD and tobacco dependency apparently he was hospitalized back in 2016 at [facility]. he is required oxygen since that time. The patient has been on Incruse in addition to rescue inhaler. Will try to maximize his respiratory therapy at this time in order to treat his obstructive airway disease. The patient has not had any pulmonary function studies. in regards of imaging did have a CT scan of the abdomen back in 2020 where he had multiple pulmonary nodules noted. Largest 1 measuring cm. No other recent imaging studies available. Denies any weight loss or night sweats. Does have a cough typically nonproductive in nature. Patient unfortunately still smoking. He is not ready to quit but he is start cutting down. We did have him go for 6 minute walk test. The patient does need oxygen continuously. He needs up to 3 L continues with activity. The patient will like to have increased portability to be able to travel. He understands he will need a continuous portable oxygen concentrator. I do believe he is a good candidate for a continues portable oxygen concentrator per although, explained to the patient they are expensive. [facility] Medical History (Updated 11/26/22 @ 20:31 by Philippe Henley MD) Pulmonary nodules Chronic respiratory failure Methadone use Toenail deformity Constipation due to opioid therapy COPD (chronic obstructive pulmonary disease) UTI symptoms Back pain Surgical History History of extraction of renal calculus History of appendectomy Family History Father Cerebral hemorrhage Mother Breast cancer Social History Housing: Apartment Alcohol intake: never Patient Tobacco Use Status: Current everyday Tobacco user Tobacco use type: Cigarette Cigarettes Per Day: 3 Years Smoked: 35 e-Cigarette/Vaping Use: Never Used Second Hand Smoke Exposure: No service: No Current occupational status: unemployed Cognitive needs: No Hearing needs: No Vision needs: Yes Review of Systems Const All systems reviewed & are unremarkable except as noted in HPI and below Eyes Reports no additional complaints, Denies change in vision and Denies other visual disturbances Card Denies chest pain at rest and Reports dyspnea on exertion Resp Reports cough and Reports dyspnea on exertion GI Denies abdominal pain Musc Denies abnormal gait, Denies atrophy, Denies deformity and Denies limited range of motion Skin/Breast Denies rash Neuro Denies abnormal gait and Denies lack of coordination Physical Exam Vital Signs: Last Vital Signs Pulse 90 11/23/22 13:23 Pulse Ox 98 11/23/22 13:23 Oxygen Delivery Method Room Air 11/23/22 13:23 BMI result Body Mass Index 44.5 Const General: comfortable Orientation/consciousness: patient oriented x3 HEENT Mouth: moist mucous membranes Neck Neck: Yes normal visual inspection, Yes full ROM and Yes trachea midline Chest Chest palpation & inspection: normal inspection of the chest Resp Effort & Inspection: normal respiratory effort Auscultation: diminished lung sounds GI Inspection: Yes normal to inspection Skin General skin exam: no rashes or lesions noted Neuro General: patient oriented x3, gait normal, tone normal and moves all extremities Extrem General: Yes normal to inspection and Yes capillary refill normal Office Procedures 6 Minute Walk Time:: 20:12 SPO2 % at rest: 87 Pulse at rest: 88 Distance in yards walked: 100 Oscar Score: 6 Supplemental Oxygen: The patient desaturated to 87% RA at rest. The patient placed on 2 liters maintatining pox 92% at rest. Then with activity increased to 3l/min to keep pox 93% [id number] - 6 Minute Walk Assessment & Plan Assessment & Plan (1) COPD (chronic obstructive pulmonary disease): Code(s): J44.9 - Chronic obstructive pulmonary disease, unspecified Qualifiers: COPD type: chronic bronchitis Chronic bronchitis type: simple Qualified Code(s): J41.0 - Simple chronic bronchitis (2) Oxygen dependent: Code(s): Z99.81 - Dependence on supplemental oxygen (3) Chronic respiratory failure: Code(s): J96.10 - Chronic respiratory failure, unspecified whether with hypoxia or hypercapnia Qualifiers: Respiratory failure complication: hypoxia Qualified Code(s): J96.11 - Chronic respiratory failure with hypoxia (4) Pulmonary nodules: Code(s): R91.8 - Other nonspecific abnormal finding of lung field Plan stop Incruse Start Trelegy 200 K[address]IE as needed PFT[address] chest to assess pulmonary nodule noted on his CT abd F/U 2 months Orders: Orders CT chest wo IV con Today J44.9 - Chronic obstructive pulmonary disease, unspecified, R91.8 - Other nonspecific abnormal finding of lung field PFT pulmonary function test Today J44.9 - Chronic obstructive pulmonary disease, unspecified, R91.8 - Other nonspecific abnormal finding of lung field Medications: New [id number]-xrzyondqi-fuqawxpl 200-62.5-25 mcg (Trelegy Ellipta) 1 inh inhalation DAILY 60 ea 12RF 30 days Quality Reporting (2019) Adult ([facility] 138/04/11/68) Smoking risk assessment performed?: Yes Patient Tobacco Use Status: Current everyday Tobacco user Coding Level of Care Code New Pt Level 4 (45026) Diagnoses Simple chronic bronchitis J41.0 COPD type: chronic bronchitis Chronic bronchitis type: simple Oxygen dependent Z99.81 Chronic respiratory failure with hypoxia J96.11 Respiratory failure complication: hypoxia Pulmonary nodules R91.8 CPT Codes Coding ([id number]) Time Spent (min) 40
[2022-11-26 20:13] VITALS: PULSE 88; O2SAT 87
== END 2022-11-23 13:51 | disposition home or self-care (01) ==
PROVIDERS: PCP Internal Medicine; Referring Provider Internal Medicine; Visit Provider Hospitalist
DX: J41.0 Simple chronic bronchitis (principal); Z99.81 Dependence on supplemental oxygen; J96.11 Chronic respiratory failure with hypoxia; R91.8 Other nonspecific abnormal finding of lung field
CPT/HCPCS: 94618; 99204

== ENCOUNTER → 2022-11-23 13:11 | Outpatient (BNVA) | payer OTHER, SELFPAY | PROVIDERS: PCP Internal Medicine; Visit Provider Hospitalist | DX: J41.0 Simple chronic bronchitis (principal); J96.11 Chronic respiratory failure with hypoxia; R91.8 Other nonspecific abnormal finding of lung field; Z99.81 Dependence on supplemental oxygen | CPT/HCPCS: 94618 ==

== ENCOUNTER 2023-01-03 11:38 | Outpatient (REF) | payer OTHER, SELFPAY ==
--- NOTE | 2023-01-03 12:53 | PFT_ITS ---
Forced vital capacity 50%, FEV1 21%, FEV1/FVC ratio is 32. FGQ39-93 only 7% and MVV 17%. Post bronchodilator therapy, there is a very minimal improvement in FEV1 and SLE87-92. Total lung capacity is 74%, and residual volume is 142%. Diffusion capacity 34%. CONCLUSION: Very severe obstructive airway disorder with some air trapping. Only minimal improvement after bronchodilator therapy is noted. There is also possible mild restrictive pulmonary disorder. Clinical correlation is recommended. MD BALBIR Hood/MODCandice / [id number]
== END 2023-01-03 11:39 | disposition home or self-care (01) ==
LOC: HO.RESP 11:38
PROVIDERS: PCP Internal Medicine; Visit Provider Hospitalist
DX: J44.9 Chronic obstructive pulmonary disease, unspecified (principal); R91.8 Other nonspecific abnormal finding of lung field
CPT/HCPCS: 94010; 94727; 94729

== ENCOUNTER → 2023-01-03 12:53 | Outpatient (BNV) | payer OTHER, SELFPAY | PROVIDERS: PCP Internal Medicine; Visit Provider Internal Medicine | DX: J44.9 Chronic obstructive pulmonary disease, unspecified (principal); R91.8 Other nonspecific abnormal finding of lung field | CPT/HCPCS: 94060; 94727; 94729 ==

== ENCOUNTER 2023-02-20 10:42 | Outpatient (AMB) | payer OTHER, SELFPAY ==
[2023-02-20 10:50] VITALS: PULSE 81; O2SAT 97; BMI 42.8
--- NOTE | 2023-02-20 10:50 | MHC.OFFVIS ---
Intake Vital Signs 02/20/23 10:50 Height 5 ft 9 in Weight 290 lb BMI 42.8 Pulse 81 Pulse Source Pulse Oximeter Pulse Oximetry (%) 97 Oxygen Delivery Method Room Air Comment 4 Liters Oxygen([facility]) Intake Visit Reasons: copd: 4 month f/u Assistant Facility Manager Required: No Allergies codeine [CODEINE] Allergy (Intermediate, Verified 02/20/23 10:52) RASH HPI HPI Comments History of Present Illness Details The patient is a 57-year-old gentleman with known COPD and tobacco dependency apparently he was hospitalized back in [address] [facility]. he is required oxygen since that time. The patient has been on Incruse in addition to rescue inhaler. Will try to maximize his respiratory therapy at this time in order to treat his obstructive airway disease. The patient has not had any pulmonary function studies. in regards of imaging did have a CT scan of the abdomen back in 2020 where he had multiple pulmonary nodules noted. Largest 1 measuring cm. No other recent imaging studies available. Denies any weight loss or night sweats. Does have a cough typically nonproductive in nature. Patient unfortunately still smoking. He is not ready to quit but he is start cutting down. We did have him go for 6 minute walk test. The patient does need oxygen continuously. He needs up to 3 L continues with activity. The patient will like to have increased portability to be able to travel. He understands he will need a continuous portable oxygen concentrator. I do believe he is a good candidate for a continues portable oxygen concentrator per although, explained to the patient they are expensive. 02/20/2023 the patient is here for a pulmonary follow-up visit. The patient still complaining of shortness of breath and wheezing. We have sent a prescription for Trelegy but he did not get it for some reason. I did send that again in call the pharmacy needs to have a prior approval done. Will do 1 in order for him to be on the therapy. He does have very severe COPD. The patient did have PFTs done and his FEV1 is around 23% predicted. In addition to that his diffusing capacity significantly decreased. His residual volume suggesting air trapping. The patient benefits from pulmonary rehabilitation. He is not open to in-person rehab at this time. I did give him information about online pulmonary rehab which will look into. In the meantime he continues using 3-4 L with activity and also at rest. The patient is looking to get a continues concentrator that is portable enough for him to take a flight to [place] to see visit his family. The patient already gets oxygen through [facility]. Explained to him that if he gets any device outside of the DME he would have to actually pay for it not be very expensive. Still she wants to pay for that will be up to him. In the meantime he should consider traveling by either boss or car or train to get to [place] in a safe manner. Unfortunately, the patient continues to smoke cigarettes. In view of his very severe obstruction he understands he does not have a lot of lung capacity left. We did talk briefly about lung transplant and also lung volume reduction interventions that the patient is not interested in undergoing any these interventions. He understands he would also need to quit smoking to be considered a candidate. [facility] Medical History (Updated 11/26/22 @ 20:31 by Philippe Henley MD) Pulmonary nodules Chronic respiratory failure Methadone use Toenail deformity Constipation due to opioid therapy COPD (chronic obstructive pulmonary disease) UTI symptoms Back pain Surgical History History of extraction of renal calculus History of appendectomy Family History Father Cerebral hemorrhage Mother Breast cancer Social History Housing: Apartment Alcohol intake: never Patient Tobacco Use Status: Current everyday Tobacco user Tobacco use type: Cigarette Cigarettes Per Day: 3 Years Smoked: 35 e-Cigarette/Vaping Use: Never Used Second Hand Smoke Exposure: No service: No Current occupational status: unemployed Cognitive needs: No Hearing needs: No Vision needs: Yes Review of Systems Const All systems reviewed & are unremarkable except as noted in HPI and below Eyes Reports no additional complaints, Denies change in vision and Denies other visual disturbances Card Denies chest pain at rest and Reports dyspnea on exertion Resp Reports cough and Reports dyspnea on exertion GI Denies abdominal pain Musc Denies abnormal gait, Denies atrophy, Denies deformity and Denies limited range of motion Skin/Breast Denies rash Neuro Denies abnormal gait and Denies lack of coordination Physical Exam Vital Signs: Last Vital Signs Pulse 81 01/03/24 10:50 Pulse Ox 97 02/20/23 10:50 Oxygen Delivery Method Room Air 02/20/23 10:50 BMI result Body Mass Index 42.8 Const General: comfortable Orientation/consciousness: patient oriented x3 HEENT Mouth: moist mucous membranes Neck Neck: Yes normal visual inspection, Yes full ROM and Yes trachea midline Chest Chest palpation & inspection: normal inspection of the chest Resp Effort & Inspection: normal respiratory effort and prolonged expiratory phase Auscultation: wheezes and diminished lung sounds GI Inspection: Yes normal to inspection Skin General skin exam: no rashes or lesions noted Neuro General: patient oriented x3, gait normal, tone normal and moves all extremities Extrem General: Yes normal to inspection and Yes capillary refill normal Right lower extremity: lower leg Details: erythema and laceration Assessment & Plan Assessment & Plan (1) COPD (chronic obstructive pulmonary disease): Code(s): J44.9 - Chronic obstructive pulmonary disease, unspecified Qualifiers: COPD type: chronic bronchitis Chronic bronchitis type: simple Qualified Code(s): J41.0 - Simple chronic bronchitis (2) Oxygen dependent: Code(s): Z99.81 - Dependence on supplemental oxygen (3) Chronic respiratory failure: Code(s): J96.10 - Chronic respiratory failure, unspecified whether with hypoxia or hypercapnia Qualifiers: Respiratory failure complication: hypoxia Qualified Code(s): J96.11 - Chronic respiratory failure with hypoxia (4) Pulmonary nodules: Code(s): R91.8 - Other nonspecific abnormal finding of lung field Plan stop Incruse Start Trelegy 200 KARIE as needed PFTs-very severe COPD CT chest to assess pulmonary nodules continue oxygen 3L/min continuous. He would like to get aPOC that can handle 3l/min. He currently have [facility] has his DME. He understands that for him to get a continues oxygen POC it will be very expensive and likely will be out of pocket. start Doxycycline for RLE cellulitis F/U 2 months Medications: New doxycycline monohydrate 100 mg PO BID 14 days 28 tabs 0RF Refilled fvcirjkebpp-ffyzezeus-ogxlhoph 200-62.5-25 mcg (Trelegy Ellipta) 1 inh inhalation DAILY 30 days 60 ea 12RF Quality Reporting (2019) Adult ([facility] 138/2//69) Smoking risk assessment performed?: Yes Patient Tobacco Use Status: Current everyday Tobacco user Coding Level of Care Code Est Pt Level 4 (69827) Diagnoses Simple chronic bronchitis J41.0 COPD type: chronic bronchitis Chronic bronchitis type: simple Oxygen dependent Z99.81 Chronic respiratory failure with hypoxia J96.11 Respiratory failure complication: hypoxia Pulmonary nodules R91.8 Time Spent (min) 17
== END 2023-02-20 11:16 | disposition home or self-care (01) ==
PROVIDERS: PCP Internal Medicine; Visit Provider Hospitalist
DX: J41.0 Simple chronic bronchitis (principal); Z99.81 Dependence on supplemental oxygen; J96.11 Chronic respiratory failure with hypoxia; R91.8 Other nonspecific abnormal finding of lung field
CPT/HCPCS: 99214

== ENCOUNTER → 2023-02-20 10:42 | Outpatient (BNVA) | payer OTHER, SELFPAY | PROVIDERS: PCP Internal Medicine; Visit Provider Hospitalist | DX: J41.0 Simple chronic bronchitis (principal); J96.11 Chronic respiratory failure with hypoxia; R91.8 Other nonspecific abnormal finding of lung field; Z99.81 Dependence on supplemental oxygen | CPT/HCPCS: 99212 ==

== ENCOUNTER 2023-05-15 11:04 | Outpatient (AMB) | payer OTHER, SELFPAY ==
[2023-05-15 11:31] VITALS: PULSE 89; O2SAT 79; BMI 42.6
--- NOTE | 2023-05-15 11:31 | MHC.OFFVIS ---
Intake Vital Signs 05/15/23 11:31 Height 5 ft 9 in Weight 288 lb 12.889 oz BMI 42.6 Pulse 89 Pulse Source Pulse Oximeter Pulse Oximetry (%) 79 L Oxygen Delivery Method Room Air Comment 4 Liters Oxygen([facility]) Intake Visit Reasons: copd Allergies codeine [CODEINE] Allergy (Intermediate, Verified 05/15/23 11:33) RASH [facility] Medical History (Updated 11/26/22 @ 20:31 by Philippe Henley MD) Pulmonary nodules Chronic respiratory failure Methadone use Toenail deformity Constipation due to opioid therapy COPD (chronic obstructive pulmonary disease) UTI symptoms Back pain Surgical History History of extraction of renal calculus History of appendectomy Family History Father Cerebral hemorrhage Mother Breast cancer Social History Housing: Apartment Alcohol intake: never Patient Tobacco Use Status: Current everyday Tobacco user Tobacco use type: Cigarette Cigarettes Per Day: 3 Years Smoked: 35 e-Cigarette/Vaping Use: Never Used Second Hand Smoke Exposure: No service: No Current occupational status: unemployed Cognitive needs: No Hearing needs: No Vision needs: Yes Physical Exam Vital Signs: Last Vital Signs Pulse 89 05/15/23 11:31 Pulse Ox 79 L 05/15/23 11:31 Oxygen Delivery Method Room Air 05/15/23 11:31 BMI result Body Mass Index 42.6 Immunizations pneumoc 20-ketan conj-dip cr(PF) 0.5 mL IM syringe Performing Provider: Philippe Henley MD Performing Location: [facility] [place] Pulmonology Services Administered by: Kavya Cortes LPN on 05/15/23 13:31 Dose Route Admin Location Dispensed Lot Number Expiration Date [facility] Senior Research Scientist 0.5 mL IM Left Deltoid 0.5 mL [id number] 04/17/24 7383-4820-58 [employer] VIS Given Date VIS Provided VIS Publication Date 05/15/23 Single Vaccine 21 Eligibility Eligibility Date Funding Source Not [facility] Eligible 05/15/23 Private Assessment & Plan Assessment & Plan (1) COPD (chronic obstructive pulmonary disease): Code(s): J44.9 - Chronic obstructive pulmonary disease, unspecified Qualifiers: COPD type: chronic bronchitis Chronic bronchitis type: simple Qualified Code(s): J41.0 - Simple chronic bronchitis (2) Chronic respiratory failure: Code(s): J96.10 - Chronic respiratory failure, unspecified whether with hypoxia or hypercapnia Qualifiers: Respiratory failure complication: hypoxia Qualified Code(s): J96.11 - Chronic respiratory failure with hypoxia (3) Oxygen dependent: Code(s): Z99.81 - Dependence on supplemental oxygen (4) Pulmonary nodules: Code(s): R91.8 - Other nonspecific abnormal finding of lung field Plan conitnue Trelegy 200 KARIE as needed every 4 hours as needed start Pulmonary rehab at [facility] continue oxygen 4L/min at rest and 6L with activity. Will need a high flow concentrator. OK to use a 4L/min POC while traveling outside of the house using wheelchair. DNA swab for alpha 1 anti trypsin deficiancy Prevnar 20 vaccine F/U 4-6 months Orders: Orders Pneumococcal 20 Immunization Today Z23 - Encounter for immunization Pulmonary Rehab Today J44.9 - Chronic obstructive pulmonary disease, unspecified, J96.10 - Chronic respiratory failure, unspecified whether with hypoxia or hypercapnia Medications: Changed From Ventolin HFA 90 mcg/actuation (albuterol sulfate) 3 puffs inhalation Q4H 30 days PRN 8 grams 6RF shortness of breath or wheezing NS J44.9 - Chronic obstructive pulmonary disease, unspecified To Ventolin HFA 90 mcg/actuation (albuterol sulfate) 3 puffs inhalation Q4H 15 days PRN 18 grams 11RF shortness of breath or wheezing NS J44.9 - Chronic obstructive pulmonary disease, unspecified Quality Reporting (2019) Adult ([facility] 13804/11/68) Smoking risk assessment performed?: Yes Patient Tobacco Use Status: Current everyday Tobacco user Coding Level of Care Code Est Pt Level 4 (22732) Diagnoses Simple chronic bronchitis J41.0 COPD type: chronic bronchitis Chronic bronchitis type: simple Chronic respiratory failure with hypoxia J96.11 Respiratory failure complication: hypoxia Oxygen dependent Z99.81 Pulmonary nodules R91.8 Time Spent (min) 20
== END 2023-05-15 11:59 | disposition home or self-care (01) ==
PROVIDERS: PCP Internal Medicine; Visit Provider Hospitalist
DX: J41.0 Simple chronic bronchitis (principal); J96.11 Chronic respiratory failure with hypoxia; Z99.81 Dependence on supplemental oxygen; R91.8 Other nonspecific abnormal finding of lung field
CPT/HCPCS: 99214

== ENCOUNTER → 2023-05-15 11:04 | Outpatient (BNVA) | payer OTHER, SELFPAY | PROVIDERS: PCP Internal Medicine; Visit Provider Hospitalist | DX: J41.0 Simple chronic bronchitis (principal); J96.11 Chronic respiratory failure with hypoxia; R91.8 Other nonspecific abnormal finding of lung field; Z99.81 Dependence on supplemental oxygen | CPT/HCPCS: 90471; 90677; 99212 ==

== ENCOUNTER 2023-11-15 11:20 | Outpatient (AMB) | payer OTHER, SELFPAY ==
--- NOTE | 2023-11-15 11:23 | A.OFFVIS_ITS ---
Vital Signs 11/15/23 11:27 Height 5 ft 9 in Weight 210 lb BMI 31.0 Pulse 90 Pulse Source Pulse Oximeter Pulse Oximetry (%) 95 Oxygen Delivery Method Room Air Comment 6 Liters Oxygen([facility]) Intake Visit Reasons: COPD Boots And Shoes Supervisor Required: No Allergies codeine [CODEINE] Allergy (Intermediate, Verified 11/15/23 11:30) RASH HPI Comments Details: The patient is a 58-year-old gentleman with known COPD and tobacco dependency apparently he was hospitalized back in [address] [facility]. he is required oxygen since that time. The patient has been on Incruse in addition to rescue inhaler. Will try to maximize his respiratory therapy at this time in order to treat his obstructive airway disease. The patient has not had any pulmonary function studies. in regards of imaging did have a CT scan of the abdomen back in 2020 where he had multiple pulmonary nodules noted. Largest 1 measuring cm. No other recent imaging studies available. Denies any weight loss or night sweats. Does have a cough typically nonproductive in nature. Patient unfortunately still smoking. He is not ready to quit but he is start cutting down. We did have him go for 6 minute walk test. The patient does need oxygen continuously. He needs up to 3 L continues with activity. The patient will like to have increased portability to be able to travel. He understands he will need a continuous portable oxygen concentrator. I do believe he is a good candidate for a continues portable oxygen concentrator per although, explained to the patient they are expensive. 02/20/2023 the patient is here for a pulmonary follow-up visit. The patient still complaining of shortness of breath and wheezing. We have sent a prescription for Trelegy but he did not get it for some reason. I did send that again in call the pharmacy needs to have a prior approval done. Will do 1 in order for him to be on the therapy. He does have very severe COPD. The patient did have PFTs done and his FEV1 is around 23% predicted. In addition to that his diffusing capacity significantly decreased. His residual volume suggesting air trapping. The patient benefits from pulmonary rehabilitation. He is not open to in-person rehab at this time. I did give him information about online pulmonary rehab which will look into. In the meantime he continues using 3-4 L with activity and also at rest. The patient is looking to get a continues concentrator that is portable enough for him to take a flight to [place] to see visit his family. The patient already gets oxygen through [facility]. Explained to him that if he gets any device outside of the DME he would have to actually pay for it not be very expensive. Still she wants to pay for that will be up to him. In the meantime he should consider traveling by either boss or car or train to get to [place] in a safe manner. Unfortunately, the patient continues to smoke cigarettes. In view of his very severe obstruction he understands he do es not have a lot of lung capacity left. We did talk briefly about lung transplant and also lung volume reduction interventions that the patient is not interested in undergoing any these interventions. He understands he would also need to quit smoking to be considered a candidate. 11/15/2023 the patient is here for pulmonary follow-up visit. The patient continues to struggle with breathing. Unfortunately he did not do pulmonary rehabilitation. It also unfortunately continues to smoke about. He does have all the medications available for tobacco cessation. Although he has not been motivated to do so. In addition to that he had been frustrated with the oxygen supplementation. His oxygen requirements are high. Initially the [employer] company fact that they can provide him with a 4 L continuous flow portable oxygen concentrator specially for him to be able to go to [place] to visit his family. However, the concentrator he does acknowledge go to 2 L continuous. I did call the [employer] company they had 1 that he can handle at 3 L continuous. Therefore also script in order for him to get that and he can try that for now. The patient is aware that by quitting smoking in doing pulmonary rehabilitation in improving her respiratory capacity he may be able to functional lower oxygen levels. In the meantime he continues use respiratory therapy with good effect. Will plan to follow-up in 2-3 months. If he has any issues prior to that he will call for an earlier assessment. [facility] Medical History (Updated 11/26/22 @ 20:31 by Philippe Henley MD) Pulmonary nodules Chronic respiratory failure Methadone use Toenail deformity Constipation due to opioid therapy COPD (chronic obstructive pulmonary disease) UTI symptoms Back pain Surgical History History of extraction of renal calculus History of appendectomy Family History Father Cerebral hemorrhage Mother Breast cancer Social History Housing: Apartment Alcohol intake: never Patient Tobacco Use Status: Current everyday Tobacco user Tobacco use type: Cigarette Cigarettes Per Day: 3 Years Smoked: 35 e-Cigarette/Vaping Use: Never Used Second Hand Smoke Exposure: No service: No Current occupational status: unemployed Cognitive needs: No Hearing needs: No Vision needs: Yes Review of Systems Const All systems reviewed & are unremarkable except as noted in HPI and below Eyes Reports no additional complaints, Denies change in vision and Denies other visual disturbances Card Denies chest pain at rest and Reports dyspnea on exertion Resp Reports cough and Reports dyspnea on exertion GI Denies abdominal pain Musc Denies abnormal gait, Denies atrophy, Denies deformity and Denies limited range of motion Skin/Breast Denies rash Neuro Denies abnormal gait and Denies lack of coordination Physical Exam Vital Signs: Last Vital Signs Pulse 90 11/15/23 11:27 Pulse Ox 95 11/15/23 11:27 Oxygen Delivery Method Room Air 11/15/23 11:27 BMI result Body Mass Index 31.0 Const General: comfortable Orientation/consciousness: patient oriented x3 HEENT Mouth: moist mucous membranes Neck Neck: Yes normal visual inspection, Yes full ROM and Yes trachea midline Chest Chest palpation & inspection: normal inspection of the chest Resp Effort & Inspection: normal respiratory effort and prolonged expiratory phase Auscultation: no wheezes and diminished lung sounds GI Inspection: Yes normal to inspection Skin General skin exam: no rashes or lesions noted Neuro General: patient oriented x3, gait normal, tone normal and moves all extremities Extrem General: Yes normal to inspection and Yes capillary refill normal Right lower extremity: lower leg Details: erythema and laceration Quality Reporting (2019) Adult ([facility] ) Smoking risk assessment performed?: Yes Patient Tobacco Use Status: Current everyday Tobacco user Assessment & Plan Assessment & Plan (1) COPD (chronic obstructive pulmonary disease): Code(s): J44.9 - Chronic obstructive pulmonary disease, unspecified Category: Medical Qualifiers: COPD type: chronic bronchitis Chronic bronchitis type: simple Qualified Code(s): J41.0 - Simple chronic bronchitis (2) Chronic respiratory failure: Code(s): J96.10 - Chronic respiratory failure, unspecified whether with hypoxia or hypercapnia Category: Medical Qualifiers: Respiratory failure complication: hypoxia Qualified Code(s): J96.11 - Chronic respiratory failure with hypoxia (3) Oxygen dependent: Code(s): Z99.81 - Dependence on supplemental oxygen Category: Medical (4) Pulmonary nodules: Code(s): R91.8 - Other nonspecific abnormal finding of lung field Category: Medical Plan conitnue Trelegy 200 KARIE as needed every 4 hours as needed continue oxygen 3L/min at rest and 6L with activity. Will need a high flow concentrator. OK to use a 3L/min POC while traveling outside of the house using wheelchair. Tobacco cessation F/U 4-6 months Medications: New ipratropium-albuterol 0.5 mg-3 mg(2.5 mg base)/3 mL 3 mL inhalation BID 180 mL 11RF 30 days J44.9 - Chronic obstructive pulmonary disease, unspecified prednisone PO daily; Take 2 tabs daily x 5 days, then 1 tablet daily x 5 days 15 tabs 0RF 10 days Coding Level of Care Code Est Pt Level 4 (26044) Complex EM visit Add On G2211 Diagnoses Simple chronic bronchitis J41.0 COPD type: chronic bronchitis Chronic bronchitis type: simple Chronic respiratory failure with hypoxia J96.11 Respiratory failure complication: hypoxia Oxygen dependent Z99.81 Pulmonary nodules R91.8 Time Spent (min) 20
[2023-11-15 11:27] VITALS: PULSE 90; O2SAT 95; BMI 31.0
== END 2023-11-15 11:49 | disposition home or self-care (01) ==
PROVIDERS: PCP Internal Medicine; Visit Provider Hospitalist
DX: J41.0 Simple chronic bronchitis (principal); J96.11 Chronic respiratory failure with hypoxia; Z99.81 Dependence on supplemental oxygen; R91.8 Other nonspecific abnormal finding of lung field
CPT/HCPCS: 99214; G2211

== ENCOUNTER → 2023-11-15 11:20 | Outpatient (BNVA) | payer OTHER, SELFPAY | PROVIDERS: PCP Internal Medicine; Visit Provider Hospitalist | DX: J41.0 Simple chronic bronchitis (principal); J96.11 Chronic respiratory failure with hypoxia; R91.8 Other nonspecific abnormal finding of lung field; Z99.81 Dependence on supplemental oxygen | CPT/HCPCS: 99212 ==

== ENCOUNTER 2024-03-20 10:05 | Outpatient (AMB) | payer OTHER, SELFPAY ==
[2024-03-20 10:15] VITALS: BP 146/78; PULSE 77; O2SAT 94; BMI 42.8
--- NOTE | 2024-03-20 10:15 | A.OFFVIS_ITS ---
Vital Signs 03/20/24 10:15 Height 5 ft 9 in Weight 289 lb 14.526 oz BMI 42.8 BP 146/78 H Blood Pressure Location Rt brachial Position Sitting Pulse 77 Pulse Source Pulse Oximeter Pulse Oximetry (%) 94 Oxygen Delivery Method Nasal Cannula Oxygen Flow Rate 4 Intake Visit Reasons: COPD Allergies codeine [CODEINE] Allergy (Intermediate, Verified 03/20/24 10:24) RASH HPI Comments Details: The patient is a 58-year-old gentleman with known COPD and tobacco dependency apparently he was hospitalized back in [address] [facility]. he is required oxygen since that time. The patient has been on Incruse in addition to rescue inhaler. Will try to maximize his respiratory therapy at this time in order to treat his obstructive airway disease. The patient has not had any pulmonary function studies. in regards of imaging did have a CT scan of the abdomen back in 2020 where he had multiple pulmonary nodules noted. Largest 1 measuring cm. No other recent imaging studies available. Denies any weight loss or night sweats. Does have a cough typically nonproductive in nature. Patient unfortunately still smoking. He is not ready to quit but he is start cutting down. We did have him go for 6 minute walk test. The patient does need oxygen continuously. He needs up to 3 L continues with activity. The patient will like to have increased portability to be able to travel. He understands he will need a continuous portable oxygen concentrator. I do believe he is a good candidate for a continues portable oxygen concentrator per although, explained to the patient they are expensive. 02/20/2023 the patient is here for a pulmonary follow-up visit. The patient still complaining of shortness of breath and wheezing. We have sent a prescription for Trelegy but he did not get it for some reason. I did send that again in call the pharmacy needs to have a prior approval done. Will do 1 in order for him to be on the therapy. He does have very severe COPD. The patient did have PFTs done and his FEV1 is around 23% predicted. In addition to that his diffusing capacity significantly decreased. His residual volume suggesting air trapping. The patient benefits from pulmonary rehabilitation. He is not open to in-person rehab at this time. I did give him information about online pulmon mary rehab which will look into. In the meantime he continues using 3-4 L with activity and also at rest. The patient is looking to get a continues concentrator that is portable enough for him to take a flight to [place] to see visit his family. The patient already gets oxygen through [facility]. Explained to him that if he gets any device outside of the DME he would have to actually pay for it not be very expensive. Still she wants to pay for that will be up to him. In the meantime he should consider traveling by either boss or car or train to get to [place] in a safe manner. Unfortunately, the patient continues to smoke cigarettes. In view of his very severe obstruction he understands he does not have a lot of lung capacity left. We did talk briefly about lung transplant and also lung volume reduction interventions that the patient is not interested in undergoing any these interventions. He understands he would also need to quit smoking to be considered a candidate. 11/15/2023 the patient is here for pulmonary follow-up visit. The patient continues to struggle with breathing. Unfortunately he did not do pulmonary rehabilitation. It also unfortunately continues to smoke about. He does have all the medications available for tobacco cessation. Although he has not been motivated to do so. In addition to that he had been frustrated with the oxygen supplementation. His oxygen requirements are high. Initially the [employer] company fact that they can provide him with a 4 L continuous flow portable oxygen concentrator specially for him to be able to go to [place] to visit his family. However, the concentrator he does acknowledge go to 2 L continuous. I did call the [employer] company they had 1 that he can handle at 3 L continuous. Therefore also script in order for him to get that and he can try that for now. The patient is aware that by quitting smoking in doing pulmonary rehabilitation in improving her respiratory capacity he may be able to functional lower oxygen levels. In the meantime he continues use respiratory therapy with good effect. Will plan to follow-up in 2-3 months. If he has any issues prior to that he will call for an earlier assessment. 03/20/2024 the patient is here for a pulmonary follow-up visit. He seems to be doing fair on the current respiratory regimen. The patient is keeping his oxygen on 4 L at rest and 6 L with activity. Sometimes he can not take a break from the oxygen especially if he is getting a very dry nose as long as his oxygen stays above 80%. In the meantime he continues to smoke cigarettes. He knows he needs to quit. Although he has a hard time doing so. We did encourage him to try again to start cutting down if possible. The patient also had a blood gas done demonstrating a significant amount of hypercarbia. Patient has chronic hypercarbic and hypoxic respiratory failure due to the COPD which is advanced even his age. Will go ahead and start him on an astral for noninvasive ventilator in order to provide him with better gas exchange, improved prognosis decrease hospitalizations. Will go ahead and work with his local [employer] company in order to provide him with the therapy that he needs. [facility] Medical History (Updated 03/22/24 @ 19:18 by Philippe Henley MD) Pulmonary nodules Chronic respiratory failure Methadone use Toenail deformity Constipation due to opioid therapy COPD (chronic obstructive pulmonary disease) UTI symptoms Back pain Surgical History History of extraction of renal calculus History of appendectomy Family History Father Cerebral hemorrhage Mother Breast cancer Social History Housing: Apartment Alcohol intake: never Patient Tobacco Use Status: Current everyday Tobacco user Tobacco use type: Cigarette Cigarettes Per Day: 3 Years Smoked: 35 e-Cigarette/Vaping Use: Never Used Second Hand Smoke Exposure: No service: No Current occupational status: unemployed Cognitive needs: No Hearing needs: No Vision needs: Yes Review of Systems Const All systems reviewed & are unremarkable except as noted in HPI and below Eyes Reports no additional complaints, Denies change in vision and Denies other visual disturbances Card Denies chest pain at rest and Reports dyspnea on exertion Resp Reports cough and Reports dyspnea on exertion GI Denies abdominal pain Musc Denies abnormal gait, Denies atrophy, Denies deformity and Denies limited range of motion Skin/Breast Denies rash Neuro Denies abnormal gait and Denies lack of coordination Physical Exam Vital Signs: Last Vital Signs Pulse 77 03/20/24 10:15 BP 146/78 H 03/20/24 10:15 Pulse Ox 94 03/20/24 10:15 Oxygen Delivery Method Nasal Cannula 03/20/24 10:15 Oxygen Flow Rate 4 03/20/24 10:15 BMI result Body Mass Index 42.8 Const General: comfortable Orientation/consciousness: patient oriented x3 HEENT Mouth: moist mucous membranes Neck Neck: Yes normal visual inspection, Yes full ROM and Yes trachea midline Chest Chest palpation & inspection: normal inspection of the chest Resp Effort & Inspection: normal respiratory effort and prolonged expiratory phase Auscultation: no wheezes and diminished lung sounds GI Inspection: Yes normal to inspection Skin General skin exam: no rashes or lesions noted Neuro General: patient oriented x3, gait normal, tone normal and moves all extremities Extrem General: Yes normal to inspection and Yes capillary refill normal Right lower extremity: lower leg Details: erythema and laceration Quality Reporting (2019) Adult ([facility] 138/04/11/68) Smoking risk assessment performed?: Yes Patient Tobacco Use Status: Current Tobacco user Assessment & Plan Assessment & Plan (1) COPD (chronic obstructive pulmonary disease): Code(s): J44.9 - Chronic obstructive pulmonary disease, unspecified Category: Medical Qualifiers: COPD type: chronic bronchitis Chronic bronchitis type: simple Qualified Code(s): J41.0 - Simple chronic bronchitis (2) Chronic respiratory failure: Code(s): J96.10 - Chronic respiratory failure, unspecified whether with hypoxia or hypercapnia Category: Medical Qualifiers: Respiratory failure complication: hypoxia and hypercapnia Qualified Code(s): J96.11 - Chronic respiratory failure with hypoxia; J96.12 - Chronic respiratory failure with hypercapnia (3) Oxygen dependent: Code(s): Z99.81 - Dependence on supplemental oxygen Category: Medical (4) Pulmonary nodules: Code(s): R91.8 - Other nonspecific abnormal finding of lung field Category: Medical Plan The patient has severe hypoxic and hypercarbic respiratory failure. He has a poor prognosis and high risk for . He needs to start a non invasive ventilator to improve gas exchange and improve prognosis and decrease hospitalizations. We will start him on a non invasive ventilator with his local [employer] company. conitnue Trelegy 200 KARIE as needed every 4 hours as needed continue oxygen 3L/min at rest and 6L with activity. Will start NIV on 5L oxyg en. Needs new tubing, will request. Tobacco cessation bloodwork request Not interested in LDCT program at this time F/U 3-4 months Orders: Orders Complete Blood Count Auto Diff 03/20/24 J96.11 - Chronic respiratory failure with hypoxia Venous Blood Gas 03/20/24 J96.11 - Chronic respiratory failure with hypoxia Basic Metabolic Panel 03/20/24 J96.11 - Chronic respiratory failure with hypoxia Erythrocyte Sedimentation Rate 03/20/24 J96.11 - Chronic respiratory failure with hypoxia Coding Level of Care Code Est Pt Level 4 (59869) Complex EM visit Add On G2211 Diagnoses Simple chronic bronchitis J41.0 COPD type: chronic bronchitis Chronic bronchitis type: simple Chronic respiratory failure with hypoxia and hypercapnia J96.11; J96.12 Respiratory failure complication: hypoxia and hypercapnia Oxygen dependent Z99.81 Pulmonary nodules R91.8 Time Spent (min) 17
--- OUTSIDE RECORDS SUMMARY | 2024-03-20 10:47 | XMS_ITS | Encounter Summary ---
Author Organization [facility] Address [address] [place] [address] Care Team Providers Care Unhairing Machine Operator Name Role Phone Sejal Adhikari MD Primary Care Provider [phone] Reason for Visit * Reason Comments Nail Problem Nail Problem Encounter Details Date Type Department Care Team ([facility] st Contact Info) Description 03/04/2024 9:45 AM EST Office Visit Orthopedic Surgery - [place] [address] [phone] Gordon Robles, DPM [address] [address] Cellulitis of right foot (Primary Dx); Non-pressure chronic ulcer of right 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 (CMS/HCC); Non-pressure chronic ulcer of left 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 (CMS/HCC); Dermatophytosis of nail; Pain in toe of right foot; Pain in toe of left foot; Corns and callosities; Metatarsalgia of both feet; Type II diabetes mellitus with peripheral circulatory disorder (CMS/HCC); Diabetic mononeuropathy simplex (CMS/HCC) Social History Tobacco Use Types Packs/Day Years Used Date Smoking Tobacco: Never Assessed Sex and Gender Information Value Date Recorded Sex Assigned at Not on file Gender Identity Not on file Sexual Orientation Not on file Job Start Date Occupation Industry Not on file Not on file Not on file documented as of this encounter Last Filed Vital Signs Vital Sign Reading Time Taken Comments Blood Pressure - - Pulse - - Temperature - - Respiratory Rate - - Oxygen Saturation - - Inhaled Oxygen Concentration - - Weight 127 kg (280 lb) 03/04/2024 9:57 AM EST Height 175.3 cm (5' 9 ) 03/04/2024 9:57 AM EST Body Mass Index 41.35 03/04/2024 9:57 AM EST documented in this encounter Ordered Prescriptions Prescription Sig Dispensed Refills Start Date End Da te amoxicillin-clavulanate (Augmentin) 875-125 mg per tablet Take 1 tablet by mouth 2 (two) times a day. 20 tablet 03/04/2024 documented in this encounter Progress Notes * Gordon Robles DPM - 03/04/2024 9:45 AM EST Last PCP visit: Last MD visit 01/29/2024 Dr. Sejal Adhikari S Patient presents now with worsening wounds of both lower extremities left and right he feels at theright has become more infected red itchy swollen he states he is one of them started on oral antibiotics states that he denies nausea vomit fever chills is at baseline shortness of breath and on oxygen does not this nails are long and painful thickened his skin is painful and thickened he states that his skin has been getting more red she aching has been scratching and he is wonder if it is to cause wound formation ROS: GENERAL: Pt denies nausea, fever, vomiting, chills, or shortness of breath. Pt in NAD. CARDIOLOGY: pt denies chest pain, palpitations LUNGS: pt denies shortness of breath MUSCULOSKELETAL: See HPI, otherwise no joint pain or swelling, back pain, or muscle pain. SKIN: see HPI, otherwise no lesions, rash or itching NEURO: No persistent headache, weakness or numbness The remainder of the review of systems is noncontributory PAST MEDICAL HISTORY: There is no problem list on file for this patient. Type II diabetic uncontrolled SOCIAL HISTORY: Social History Tobacco Use Smoking status: Not on file Smokeless tobacco: Not on file Substance Use Topics Alcohol use: Not on file History Never marked as reviewed. ACTIVE MEDICATIONS: Current Outpatient Medications Medication Sig Dispense Refill hydrocortisone 1 % cream Apply topically to skin daily 30 g 3 clotrimazole (LOTRIMIN) 1 % cream Apply to skin and toenails daily for 12 weeks 45 g 3 clotrimazole (LOTRIMIN) 1 % cream Apply to skin and toenails daily for 12 weeks 45 g 3 silver sulfADIAZINE (SILVADENE) 1 % cream Apply topically to wound bed daily 50 g 0 ammonium lactate (LAC-HYDRIN) 12 % lotion Apply to soles of feet daily. At night wear socks to bed 400 g 2 No current facility-administered medications for this visit. ALLERGIES: Codeine PHYSICAL EXAM: Height 5' 3 (1.6 m), weight 293 lb (132.9 kg). Estimated body mass index is 51.9 kg/m?? as calculated from the following: Height as of this encounter: 5' 3 (1.6 m). Weight as of this encounter: 293 lb (132.9 kg). PODIATRIC EXAMINATION: GENERAL: Patient appears well nourished, with NAD. VASCULAR: Dorsalis pedis pulses are 0/4 bilaterally and Posterior tibial pulses are 0/4 bilaterally. Capillary filling time within normal limits the digits. No pallor on elevation or rubor on dependency. Positive hair growth. Extensive varicosities. Positive rest pain or claudication pain. Pulse for pain edema bilaterally with skin breakdown extensive lipodermatosclerosis and early signsof ulceration of the right leg anterior galan with weeping NEUROLOGICAL: Sharp/dull sensation intact, protective sensation intact 10/10 with 5.07 semmes lilly bilaterally, vibratory sensation with tuning fork intact to the tibial tuberosity. Notable allodynia bilateral feet ORTHOPEDIC: Good muscle strength 5/5 of all flexors and extensors. Dorsi flexion of ankle ,10 degrees, plantar flexion WNL. No muscle atrophy. DERMATOLOGICAL:. Extensive epidermal sloughing of the right leg extensive heterotrophic skin xerosis bilateral feet lipodermatosclerosis extensive bilateral extremities with +4 pitting edema bilaterally Right leg ulcer measures 1 cmx 1 cm x 3 mm with subcutaneous layer exposed improved measurements from last appointment Left leg ulceration measures 3 cm x 2 cm x 2 to 3 mm into dermal subcutaneous tissues hyperKeratotic tissue subfirst metatarsal bilateral Localized redness of the right mid calf extending from foot Toenails: Left Toenail(s) 1-5: Crumbling upon debridement, subungual debris, discoloration, dystrophy, elongation, mycotic appearance, onychomycosis, pain and thickening. Right Toenail(s) 1-5: Crumbling upon debridement, subungual debris, discoloration, dystrophy, elongation, mycotic appearance, onychomycosis, pain and thickening. Annular scaling bilateral feet moccasin distribution Skin thinning texture shiny appearance diffuse hyperpigmentation bilaterally pedal hair decreased BIOMECHANICS: STJ ROM wnl, MTJ ROM wnl, 1st MPJ ROM wnl. Hammertoe contractures 2 through 5 bilateral IMAGING: IMPRESSION: 1. Cellulitis of right foot 2. Non-pressure chronic ulcer of right 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 (CMS/HCC) 3. Non-pressure chronic ulcer of left 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 (CMS/HCC) 4. Dermatophytosis of nail 5. Pain in toe of right foot 6. Pain in toe of left foot 7. Corns and callosities 8. Metatarsalgia of both feet 9. Type II diabetes mellitus with peripheral circulatory disorder (CMS/HCC) 10. Diabetic mononeuropathy simplex (CMS/HCC) PLAN: Concerns for cellulitis of the right lower extremity was discussed and reviewed Augmentin prescribed Follow-up in 2 weeks Continue JuxtaLite compression Continue Aquacel Ag New wound formation left foot discussed and reviewed Referral placed to graves registration specialist patient declined I did discussed with patient that gettingmore evaluations of his feet will help him heal he states he does not go to doctors appointments He is aware that there is a risk of worsening infectious processes for prolonged delayed healing ofhis skin and his wound has not improved significantly in a prolonged period of time Refill sent for Aquacel Ag to be utilized on wound instead of Silvadene in the hopes to improve worsening wound formation of right leg Follow-up in 2 weeks Open wound Open wound selective debridement of devitalized soft tissue, fibrin, epidermis, dermis, thru skin tissue, first 20 sq cm or less, using sterile selective debridement. Pt. deferred anesthesia. . Devitalized tissue was not sent to pathology. Debridement of mycotic toenails 6-10: Verbal informed consent was obtained from the patient. Greater than 6 nails were aseptically debrided in thickness and length with nail nippers Hyperkeratotic tissue debrided pared with a number #15 scalpel blade x2 Gordon Robles DPM documented in this encounter Plan of Treatment Upcoming Encounters Date Type Department Care Team (Late st Contact Info) Description 04/22/2024 9:45 AM EST Office Visit Orthopedic Surgery - [address] [place] [phone] Gordon Robles, DPM [address] [address] documented as of this encounter Visit Diagnoses Diagnosis Cellulitis of right foot- Primary Non-pressure chronic ulcer of right 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 (CMS/HCC) Non-pressure chronic ulcer of left 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 (CMS/HCC) Dermatophytosis of nail Pain in toe of right foot Pain in soft tissues of limb Pain in toe of left foot Pain in soft tissues of limb Corns and callosities Metatarsalgia of both feet Type II diabetes mellitus with peripheral circulatory disorder (CMS/HCC) Type II or unspecified type diabetes mellitus with peripheral circulatory disorders, not stated as uncontrolled Diabetic mononeuropathy simplex (CMS/HCC) Type II or unspecified type diabetes mellitus with neurological manifestations, not stated as uncontrolled documented in this encounter Historical Medications * This list may reflect changes made after this encounter. Medication Sig Dispensed Refills Start Date End Date Incruse Ellipta 62.5 mcg/actuation inhalation INHALE 1 PUFF BY MOUTH DAILY FOR 30 DAYS 02/13/2024 sulfamethoxazole-trimet hoprim (BACTRIM DS,SEPTRA DS) 800-160 mg per tablet Take 1 tablet by mouth 2 (two) times a day. for 10 days 03/07/2023 senna 8.6 mg tablet TAKE 3 TABS ORALLY BEDTIME NEEDED FOR CONSTIPATION FOR 90 DAYS 02/10/2024 predniSONE (DELTASONE) 20 mg tablet TAKE 2 TABLETS BY MOUTH EVERY DAY FOR 5 DAYS THEN 1 TABLET DAILY X5 DAYS 11/15/2023 montelukast (SINGULAIR) 10 mg tablet Take 1 tablet (10 mg total) by mouth 1 (one) time each day. for 90 days 02/09/2024 loratadine (CLARITIN) 10 mg tablet Take 1 tablet (10 mg total) by mouth 2 (two) times a day. 01/08/2024 ipratropium-albuteroL (DUONEB) 0.5-2.5 mg/3 mL nebulizer solution Take 3 mL by nebulization 2 (two) times a day. 02/10/2024 ibuprofen (ADVIL,MOTRIN) 800 mg tablet TAKE 1 TABLET BY MOUTH 2 TIMES A DAY NEEDED FOR PAIN FOR 30 DAYS 02/15/2024 Trelegy Ellipta 200-62.5-25 mcg inhaler INHALE 1 PUFF DAILY FOR 30 DAYS 02/10/2024 Ventolin HFA 90 mcg/actuation inhaler INHALE 3 PUFFS EVERY 4 HOURS NEEDED FOR SHORTNESS OF BREATH OR WHEEZING FOR 15 DAYS 02/26/2024 added in this encounter Care Teams Unhairing Machine Operator Relationship Specialty Start Date End Date Sejal Adhikari MD [address] [place] [address] , [address] [place] [address] Physician Associ [facility] PCP - General Internal Medicine 10/22/17 documented as of this encounter
--- OUTSIDE RECORDS SUMMARY | 2024-03-20 10:47 | XMS_ITS | Clinical Summary ---
Author Organization 175 [facility] Address [address] [place] [address] Phone Care Team Providers Care Manager Procurement Name Role Phone Sejal Adhikari MD Primary Care Provider [phone] Allergies Active Allergy Reactions Criticality Noted Date Comments Codeine 10/31/2022 Medications Medication Sig Dispensed Refills Start Date End Date Status ammonium lactate (LAC-HYDRIN) 12 % lotion Apply to soles of feet daily. At night wear socks to bed 03/21/2023 Active clotrimazole (LOTRIMIN) 1 % cream Apply to skin and toenails daily for 12 weeks 10/23/2023 Active hydrocortisone 1 % topical cream Apply topically to nails and skin daily 11/13/2023 Active silver sulfADIAZINE (SILVADENE, SSD) 1 % cream Apply topically 1 (one) time each day. to wound bed 03/27/2023 Active Ventolin HFA 90 mcg/actuation inhaler INHALE 3 PUFFS EVERY 4 HOURS NEEDED FOR SHORTNESS OF BREATH OR WHEEZING FOR 15 DAYS 02/26/2024 Active Trelegy Ellipta 200-62.5-25 mcg inhaler INHALE 1 PUFF DAILY FOR 30 DAYS 02/10/2024 Active ibuprofen (ADVIL,MOTRIN) 800 mg tablet TAKE 1 TABLET BY MOUTH 2 TIMES A DAY NEEDED FOR PAIN FOR 30 DAYS 02/15/2024 Active ipratropium-albuter oL (DUONEB) 0.5-2.5 mg/3 mL nebulizer solution Take 3 mL by nebulization 2 (two) times a day. 02/10/2024 Active loratadine (CLARITIN) 10 mg tablet Take 1 tablet (10 mg total) by mouth 2 (two) times a day. 01/08/2024 Active montelukast (SINGULAIR) 10 mg tablet Take 1 tablet (10 mg total) by mouth 1 (one) time each day. for 90 days 02/09/2024 Active predniSONE (DELTASONE) 20 mg tablet TAKE 2 TABLETS BY MOUTH EVERY DAY FOR 5 DAYS THEN 1 TABLET DAILY X5 DAYS 11/15/2023 Active senna 8.6 mg tablet TAKE 3 TABS ORALLY BEDTIME NEEDED FOR CONSTIPATION FOR 90 DAYS 02/10/2024 Active sulfamethoxazole-tr imethoprim (BACTRIM DS,SEPTRA DS) 800-160 mg per tablet Take 1 tablet by mouth 2 (two) times a day. for 10 days 03/07/2023 Active Incruse Ellipta 62.5 mcg/actuation inhalation INHALE 1 PUFF BY MOUTH DAILY FOR 30 DAYS 02/13/2024 Active amoxicillin-clavula danisha (Augmentin) 875-125 mg per tablet Take 1 tablet by mouth 2 (two) times a day. 20 tablet 03/04/2024 Active wnite petrolatum-mineral (EUCERIN) cream Apply topically if needed for wound care or dry skin. 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); Dermatophytosis of nail; Pain in toe of right foot; Pain in toe of left foot; Corns and callosities; Metatarsalgia of both feet; Type II diabetes mellitus with peripheral circulatory disorder (CMS/HCC); Diabetic mononeuropathy simplex (CMS/HCC) 03/04/2024 Telephone Orthopedic Surgery [facility] [address] [phone] Gordon Robles DPM from Last 3 Months Social History Tobacco Use Types Packs/Day Years Used Date Smoking Tobacco: Never Assessed Sex and Gender Information Value Date Recorded Sex Assigned at Not on file Gender Identity Not on file Sexual Orientation Not on file Job Start Date Occupation Industry Not on file Not on file Not on file Last Filed Vital Signs Vital Sign Reading Time Taken Comments Blood Pressure - - Pulse - - Temperature - - Respiratory Rate - - Oxygen Saturation - - Inhaled Oxygen Concentration - - Weight 127 kg (280 lb) 03/04/2024 9:57 AM EST Height 175.3 cm (5' 9 ) 03/04/2024 9:57 AM EST Body Mass Index 41.35 03/04/2024 9:57 AM EST Plan of Treatment Upcoming Encounters Date Type Department Care Team (Late st Contact Info) Description 04/22/2024 9:45 AM EST Office Visit Orthopedic Surgery - [place] [address] [phone] Gordon Robles, DPM [address] [address] Health Maintenance Due Date Last Done Comments Diabetes: Annual GFR (Glomer ular Filtration Rate) 1966 Pneumococcal Vaccine: Pediat rics (0 to 5 Years) and At-Risk Patients (6 to 64 Years) (1 of 2 - PCV) 1972 Diabetes: Annual Foot Exam 1976 Diabetes: Annual Retina Eye Exam 1976 DTaP,Tdap,and Td Vaccines (1 - Tdap) 1985 Hepatitis B Vaccines (1 of 3 - 19+ 3-dose series) 1985 Zoster Vaccines (1 of 2) 2016 Cholesterol Screening (Lipid Panel) 01/21/2022 Colorectal Cancer Screening: Colonoscopy 01/21/2022 Depression Screening 01/21/2022 HIV Screening 01/21/2022 Hepatitis C Screening 01/21/2022 Social Influencers of Health Screening 01/21/2022 COVID-19 Vaccine (1 - 2023-2 5 season) 2023 Influenza Vaccine (#1) 2023 Diabetes: Annual Urine Albumin-Creatinine Ratio (uACR) 03/04/2024 Diabetes: Blood Sugar Contro l Test (HGBA1C) 03/04/2024 HIB Vaccines Aged Out No longer eligi ble based on patient's age to complete this topic HPV Vaccines Aged Out No longer eligi ble based on patient's age to complete this topic Hepatitis A Vaccines Aged Out No long er eligible based on patient's age to complete this topic IPV Vaccines Aged Out No longer eligi ble based on patient's age to complete this topic MMR Vaccines Aged Out No longer eligi ble based on patient's age to complete this topic Meningococcal ACWY Vaccine Aged Out N o longer eligible based on patient's age to complete this topic RSV Immunization Patients Un татьяна 20 months Aged Out No longer eligible b ased on patient's age to complete this topic Varicella Vaccines Aged Out No longer eligible based on patient's age to complete this topic Advance Directives Documents on File Type Date Recorded 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
--- OUTSIDE RECORDS SUMMARY | 2024-03-20 10:47 | XMS_ITS | Encounter Summary ---
Author Organization [facility] Address [address] [place] [address] Care Team Providers Care Wedding Designer Name Role Phone Sejal Adhikari MD Primary Care Provider [phone] Encounter Details Date Type Department Care Team ([facility] Contact Info) Description 03/04/2024 Telephone Orthopedic Surgery - [place] [address] [phone] Gordon Robles, DPM [address] [address] Social History Tobacco Use Types Packs/Day Years Used Date Smoking Tobacco: Never Assessed Sex and Gender Information Value Date Recorded Sex Assigned at Not on file Gender Identity Not on file Sexual Orientation Not on file Job Start Date Occupation Industry Not on file Not on file Not on file documented as of this encounter Ordered Prescriptions Prescription Sig Dispensed Refills Start Date End Da te wnite petrolatum-mineral (EUCERIN) cream Apply topically if needed for wound care or dry skin. 397 g 03/05/2024 03/05/2025 documented in this encounter Progress Notes * Devora Espinosa - 03/06/2024 9:50 AM EST Pt checking on status of refill Hydroccerin [facility] * Lela Rabago - 03/04/2024 2:14 PM EST Artur is calling stating in office visit today he was told to call back with the name of a cream he was taking Hydrocerin cream documented in this encounter Plan of Treatment Upcoming Encounters Date Type Department Care Team (Late st Contact Info) Description 04/22/2024 9:45 AM EST Office Visit Orthopedic Surgery - [place] [address] [phone] Gordon Robles DPJd [address] [address] documented as of this encounter Visit Diagnoses Not on filedocumented in this encounter Care Teams Wedding Designer Relationship Specialty Start Date End Date Sejal Adhikari MD [address] [place] [address] , [address] [facility] Physician Associ D/B/A: [facility] [place], [place] PCP - General Internal Medicine 10/22/17 documented as of this encounter
== END 2024-03-20 10:54 | disposition home or self-care (01) ==
PROVIDERS: PCP Internal Medicine; Visit Provider Hospitalist
DX: J41.0 Simple chronic bronchitis (principal); J96.11 Chronic respiratory failure with hypoxia; J96.12 Chronic respiratory failure with hypercapnia; Z99.81 Dependence on supplemental oxygen; R91.8 Other nonspecific abnormal finding of lung field
CPT/HCPCS: 99214; G2211

== ENCOUNTER 2024-03-20 10:05 | Outpatient (REF) | payer OTHER, SELFPAY ==
[2024-03-20 11:23] LABS: MANUAL DIFF FLAG NO
[2024-03-20 11:25] LABS: Venous Blood Gas Refer to POC result
[2024-03-20 11:29] LABS: VBG Base Excess 22.6 mmol/L; VBG pCO2 98 mmHg; VBG pH 7.34 (7.32-7.43); VBG pO2 35 mmHg
[2024-03-20 11:30] LABS: VBG HCO3 54 mmol/L (22-26)
--- OUTSIDE RECORDS SUMMARY | 2024-03-20 11:52 | XMS_ITS | Encounter Summary ---
Author Organization [facility] Address [address] [place] [address] Care Team Providers Care Special Officer Name Role Phone Sejal Adhikari MD Primary Care Provider [phone] Encounter Details Date Type Department Care Team ([facility] Contact Info) Description 03/04/2024 Telephone Orthopedic Surgery - [place] [address] [phone] Gordon Robles, DPM [address] [address] Social History Tobacco Use Types Packs/Day Years [...] Pt checking on status of refill Hydroccerin [facility] * Lela Rabago - 03/04/2024 2:14 PM EST Artur is calling stating in office visit today he was told to call back with the name of a cream he was taking Hydrocerin cream documented in this encounter Plan of Treatment Upcoming Encounters Date Type Department Care Team (Late st Contact Info) Description 04/22/2024 9:45 AM EST Office Visit Orthopedic Surgery - [place] [address] [phone] Gordon Robles DPJd [address] [address] documented as of this encounter Visit Diagnoses Not on filedocumented in this encounter Care Teams Special Officer Relationship Specialty Start Date End Date Sejal Adhikari MD [address] [place] [address] , [address] [employer] Physician Associ D/B/A: [facility] [place], [place] PCP - General Internal Medicine 10/22/17 documented as of this encounter
--- OUTSIDE RECORDS SUMMARY | 2024-03-20 11:52 | XMS_ITS | Encounter Summary ---
Author Organization [facility] Address [address] [place] [address] Care Team Providers Care Computer Hardware Designer Name Role Phone Sejal Adhikari MD Primary Care Provider [phone] Reason for Visit * Reason Comments Nail Problem Nail Problem Encounter Details Date Type Department Care Team ([facility] st Contact Info) Description 03/04/2024 9:45 AM EST Office Visit Orthopedic Surgery - [place] [address] [phone] Gordon Robles, DPM [address] [address] Cellulitis of right foot (Primary Dx); Non-pressure [...] foot discussed and reviewed Referral placed to complaint specialist patient declined I did discussed with [...] AM EST Office Visit Orthopedic Surgery - [address] [place] [phone] Gordon Robles, DPM [address] [address] documented as of this encounter Visit Diagnoses [...] 02/26/2024 added in this encounter Care Teams Computer Hardware Designer Relationship Specialty Start Date End Date Sejal Adhikari MD [address] [place] [address] , [address] [place] [address] Physician Associ D/B/A: [facility] PCP - General Internal Medicine 10/22/17 documented as of this encounter
--- OUTSIDE RECORDS SUMMARY | 2024-03-20 11:52 | XMS_ITS | Clinical Summary ---
Author Organization 175 [facility] Address [address] [place] [address] Phone Care Team Providers Care Professor Of Literacy Name Role Phone Sejal Adhikari MD Primary Care Provider [phone] Allergies Active Allergy Reactions Criticality Noted Date [...] 9:45 AM EST Office Visit Orthopedic Surgery [address] [phone] Gordon Robles DPM Cellulitis of [...] mononeuropathy simplex (CMS/HCC) 03/04/2024 Telephone Orthopedic Surgery [facility] [phone] [phone] Gordon Robles DPM from Last 3 Months [...] AM EST Office Visit Orthopedic Surgery - [place] [address] [phone] Gordon Robles, DPM [address] [address] Health Maintenance Due Date Last Done Comments [...] Documents on File Type Date Recorded 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
[2024-03-20 11:58] LABS: Basophils Percent Auto 0.4 % (0-2); Eosinophils Absolute Auto 0.3 X10*3/uL (0.0-0.4); Eosinophils Percent Auto 4.2 % (0-4); Hematocrit 39.5 % (42.0-52.0); Hemoglobin 11.9 g/dl (14.0-18.0); Imm Gran Abs Auto 0.03 X10*3/uL (0.00-0.03); Imm Gran Pct Auto 0.4 % (0.0-0.4); Lymphocytes Absolute Auto 1.7 X10*3/uL (1.2-4.9); Lymphocytes Percent Auto 23.3 % (20-40); Mean Corpuscular HGB Conc 30.1 g/dl (31.0-36.0); Mean Corpuscular Hemoglobin 27.6 pg (27.0-33.0); Mean Corpuscular Volume 91.6 fL (80.0-98.0); Mean Platelet Volume 9.6 fL (9.4-12.4); Monocytes Absolute Auto 0.6 X10*3/uL (0.1-1.2); Monocytes Percent Auto 7.6 % (2-11); Neutrophils Absolute Auto 4.7 x10*3/uL (2.0-8.3); Neutrophils Percent Auto 64.1 % (45-73); Platelet Count 206 X10*3/uL (160-400); Red Blood Count 4.31 X10*6/uL (4.60-5.80); Red Cell Distribution Width 14.2 % (11.0-16.0); White Blood Count 7.3 X10*3/uL (4.8-10.8)
[2024-03-20 12:38] LABS: Erythrocyte Sedimentation Rate 54 MM/HR (0-15)
[2024-03-20 13:35] LABS: Anion Gap 9 (12-20); Blood Urea Nitrogen 8 mg/dL (9-16); Calcium 9.7 mg/dL (8.4-10.2); Carbon Dioxide 44 mmol/L (22-29); Chloride 91 mmol/L (96-108); Estimated Glomerular Filt Rate > 60; Glucose Random 84 mg/dL (60-115); Potassium 4.5 mmol/L (3.3-5.1); Sodium 139 mmol/L (135-145)
== END 2024-03-20 10:06 | disposition home or self-care (01) ==
LOC: HO.LAB 10:05
PROVIDERS: PCP Internal Medicine; Visit Provider Hospitalist
DX: J96.11 Chronic respiratory failure with hypoxia (principal); J41.0 Simple chronic bronchitis; J96.12 Chronic respiratory failure with hypercapnia; Z99.81 Dependence on supplemental oxygen; R91.8 Other nonspecific abnormal finding of lung field
CPT/HCPCS: 36415; 80048; 82803; 85025; 85652; 99212